=== PATIENT | female | born 1945 | race Caucasian/White ===

== ENCOUNTER 2017-09-28 10:12 | Inpatient (IN) | payer MEDICARE, OTHER ==
[2017-09-28] MEDS ORDERED: Sodium Chloride 0.9% 10 ML Syringe FLUSH PRN (14:25)
[2017-09-28] MEDS ORDERED: Ondansetron 4 MG Tab.DIS PO PRN (14:25)
[2017-09-28] MEDS ORDERED: Promethazine 25 MG in Sodium Chloride 0.9% 100 ML IV PRN (14:30)
[2017-09-28 14:57] LABS: CHLORIDE,CL 108 mEq/L (98-106); SODIUM,NA 144 mEq/L (136-145)
[2017-09-28] MEDS: Enoxaparin 40 MG/0.4 ML Syringe SUBCUT SCH (17:51)
[2017-09-28] MEDS: MEMANTINE 10 MG PO SCH (20:50)
[2017-09-28] MEDS: DONEPEZIL 10 MG PO SCH (20:50)
[2017-09-28] MEDS: GABAPENTIN 300 MG PO SCH (20:51)
[2017-09-28] MEDS: Mirtazapine 15 MG Tab*PT OWN MED PO SCH (20:51)
[2017-09-28] MEDS: ROSUVASTATIN 10 MG PO SCH (20:51)
[2017-09-29] MEDS: METOPROLOL SUCCINATE 50 MG PO SCH (08:30)
[2017-09-29] MEDS: GABAPENTIN 300 MG PO SCH ×3 (08:30→20:25)
[2017-09-29] MEDS: MEMANTINE 10 MG PO SCH ×2 (08:30→20:25)
[2017-09-29] MEDS: Cholecalciferol (Vitamin D3) 1,000 Unit Tab PO SCH (08:32)
--- NOTE | 2017-09-29 09:08 | PCM.PN ---
- General Info Date of Service: 09/29/17 Admission Dx/Problem (Free Text): Dizziness Functional Status: Reports: Pain Controlled, Tolerating Diet, Ambulating - Review of Systems General: Denies: Fever, Weakness, Fatigue HEENT: Reports: No Symptoms Pulmonary: Denies: Shortness of Breath, Cough Cardiovascular: Denies: Chest Pain, Edema, Lightheadedness Gastrointestinal: Denies: Abdominal Pain, Nausea, Vomiting Genitourinary: Reports: No Symptoms Musculoskeletal: Reports: No Symptoms Skin: Reports: No Symptoms Neurological: Reports: Confusion, Dizziness, Pre-Existing Deficit - Patient Data Vitals - Most Recent: Last Vital Signs Temp 97.6 F 09/29/17 07:19 Pulse 87 09/29/17 07:19 Resp 16 09/29/17 07:19 BP 200/80 H 09/29/17 07:19 Pulse Ox 98 09/29/17 07:19 Weight - Most Recent: 147 lb 6.4 oz Lab Results Last 24 Hours: Laboratory Results - last 24 hr 09/28/17 09/28/17 09/28/17 Range/Units 12:00 14:35 14:35 WBC 5.0 (5.0-10.0) 10^3/uL RBC 4.14 (4.00-5.50) 10^6/uL Hgb 12.7 (12.0-16.0) g/dL Hct 37.9 (37.0-47.0) % MCV 91.5 (82.0-94.0) fL MCH 30.7 (27.0-32.0) pg MCHC 33.5 (33.0-38.0) g/dL RDW Coeff of Miguel Angel 13.4 (11.0-15.0) % Plt Count 197 (150-400) 10^3/uL Neut % (Auto) 55.6 (35-85) % Lymph % (Auto) 31.9 (10-55) % [place] % (Auto) 8.9 (0-16) % Eos % (Auto) 3.2 (0-5) % Baso % (Auto) 0.4 (0-3) % Neut # (Auto) 2.75 (1.80-7.00) 10^3/uL Lymph # (Auto) 1.58 (1.00-4.80) 10^3/uL [place] # (Auto) 0.44 (0.00-0.80) 10^3/uL Eos # (Auto) 0.16 (0.00-0.45) 10^3/uL Baso # (Auto) 0.02 10^3/uL Sodium 144 (136-145) mEq/L Potassium 3.9 (3.5-5.0) mEq/L Chloride 108 H (98-106) mEq/L Carbon Dioxide 29 (21-32) mmol/L BUN 13 (7-18) mg/dL Creatinine 0.9 (0.6-1.0) mg/dL Est Cr Clr Drug Dosing 51.59 mL/min Estimated GFR (MDRD) > 60 (>=60) mL/min Glucose 111 H (75-99) mg/dL Calcium 8.8 (8.4-10.1) mg/dL Total Bilirubin 0.3 (0.0-1.0) mg/dL AST 15 (15-37) U/L ALT 18 (12-78) U/L Alkaline Phosphatase 92 (46-116) U/L Troponin I < 0.017 (0.00-0.06) ng/mL C-Reactive Protein < 0.2 L (0.2-0.8) mg/dL Total Protein 6.5 (6.4-8.2) g/dL Albumin 3.5 (3.4-5.0) g/dL Urine Color Yellow (YELLOW) Urine Appearance Clear (CLEAR) Urine pH 7.0 (4.5-8.0) Ur Specific [place] 1.020 (1.003-1.020) Urine Protein Negative (NEGATIVE) mg/dL Urine Glucose (UA) Negative (NEGATIVE) mg/dL Urine Ketones Negative (NEGATIVE) mg/dL Urine Occult Blood Negative (NEGATIVE) Urine Nitrite Negative (NEGATIVE) Urine Bilirubin Negative (NEGATIVE) Urine Urobilinogen 1.0 (0.2-1.0) EU/dL Ur Leukocyte Esterase Negative (NEGATIVE) Urine RBC Not seen (0-5) /HPF Urine WBC Not seen (0-5) /HPF Ur Epithelial Cells Few H (NOT SEEN) /HPF Med Orders - Current: Current Medications Amlodipine Besylate (Norvasc) 5 mg PO BEDTIME [facility] Cholecalciferol (Vitamin D3) 5,000 units PO DAILY [facility] Last Admin: 09/29/17 08:32 Dose: 5,000 units Enoxaparin Sodium (Lovenox) 40 mg SUBCUT Q24H [facility] Last Admin: 09/28/17 17:51 Dose: 40 mg Promethazine HCl 25 mg/ Sodium (Chloride) 101 mls @ 202 mls/hr IV Q6H PRN PRN Reason: Dizziness Memantine (Namenda) 10 mg PO BID [facility] Last Admin: 09/29/17 08:30 Dose: 10 mg Mirtazapine (Remeron) 15 mg PO BEDTIME [facility] Last Admin: 09/28/17 20:51 Dose: 15 mg Ondansetron HCl (Zofran Odt) 4 mg PO Q4H PRN PRN Reason: nausea, able to take PO Donepezil 10 Mg Tab (* Pt Own Med*) 0 each PO BEDTIME [facility] Last Admin: 09/28/17 20:50 Dose: 1 each Gabapentin 300 Mg (Caps*Pt Own Supply*) 0 each PO TID [facility] Last Admin: 09/29/17 08:30 Dose: 300 each Metoprolol Succinate 50 Mg Tabs*Pt Own Med* 0 each PO DAILY [facility] Last Admin: 09/29/17 08:30 Dose: 25 each Rosuvastatin 10 Mg (Tab*Pt Own Med*) 0 each PO BEDTIME [facility] Last Admin: 09/28/17 20:51 Dose: 1 each Sodium Chloride (Saline Flush) 10 ml FLUSH ASDIRECTED PRN PRN Reason: Keep Vein Open - Exam General: Alert, Oriented HEENT: Mucous Membr. Moist/[place] Neck: Supple Lungs: Clear to Auscultation, Normal Respiratory Effort Cardiovascular: Regular Rate, Regular Rhythm GI/Abdominal Exam: Normal Bowel Sounds, Soft, Non-Tender Extremities: Normal Inspection, No Pedal Edema Skin: Warm, Dry Neurological: No New Focal Deficit - Problem List & Annotations (1) Vertigo SNOMED Code(s): 781624380 Code(s): R42 - DIZZINESS AND GIDDINESS Status: Acute Priority: High Current Visit: Yes (2) Uncontrolled hypertension SNOMED Code(s): 00213096 Code(s): I10 - ESSENTIAL (PRIMARY) HYPERTENSION Status: Chronic Priority : High Current Visit: Yes - Problem List Review Problem List Initiated/Reviewed/Updated: Yes - My Orders Last 24 Hours: My Active Orders 09/29/17 20:00 amLODIPine [Norvasc] 5 mg PO BEDTIME - Assessment Assessment:: Vertigo Uncontrolled hypertension - Plan Plan:: Patient continues to complain of dizziness, "feels off". Admits that has more problems when moving head quickly but mostly when getting up to the bathroom or to move around in room. She states she knows to take it slow and does better that way. Denies any chest pain, shortness of breath or nausea. Appetite is good. Blood pressure is high this am, 192/95 and 200/80. Metoprolol had recently been decreased due to dizziness/orthostasis. Did have carotid US, Echo and CT of head yesterday, awaiting reports. Will start Norvasc 5 mg this evening. PT for canalith repositioning. Possible discharge tomorrow.
[2017-09-29] MEDS: Enoxaparin 40 MG/0.4 ML Syringe SUBCUT SCH (17:51)
[2017-09-29] MEDS: amLODIPine 2.5 MG Tab PO SCH (20:25)
[2017-09-29] MEDS: DONEPEZIL 10 MG PO SCH (20:26)
[2017-09-29] MEDS: ROSUVASTATIN 10 MG PO SCH (20:26)
[2017-09-29] MEDS: Mirtazapine 15 MG Tab*PT OWN MED PO SCH (20:26)
[2017-09-30] MEDS: Cholecalciferol (Vitamin D3) 1,000 Unit Tab PO SCH (08:06)
[2017-09-30] MEDS: GABAPENTIN 300 MG PO SCH ×2 (08:06→14:19)
[2017-09-30] MEDS: METOPROLOL SUCCINATE 50 MG PO SCH (08:07)
[2017-09-30] MEDS: MEMANTINE 10 MG PO SCH (08:07)
[2017-09-30] MEDS: Promethazine 12.5 MG in Sodium Chloride 0.9% 50 ML IV SCH (14:14)
--- NOTE | 2017-09-30 15:03 | PCM.PN ---
- General Info Date of Service: 09/30/17 Admission Dx/Problem (Free Text): Dizziness Functional Status: Reports: Pain Controlled, Tolerating Diet, Ambulating - Review of Systems General: Denies: Fever, Weakness, Fatigue HEENT: Reports: No Symptoms Pulmonary: Denies: Shortness of Breath, Cough Cardiovascular: Denies: Chest Pain, Edema, Lightheadedness Gastrointestinal: Denies: Abdominal Pain, Decreased Appetite, Nausea, Vomiting Genitourinary: Reports: No Symptoms Musculoskeletal: Reports: No Symptoms Skin: Reports: No Symptoms Neurological: Reports: Dizziness. Denies: Syncope, Weakness - Patient Data Vitals - Most Recent: Last Vital Signs Temp 98.1 F 09/30/17 08:00 Pulse 70 09/30/17 08:00 Resp 20 09/30/17 08:00 BP 151/59 H 09/30/17 08:00 Pulse Ox 96 09/30/17 08:00 Weight - Most Recent: 147 lb 6.4 oz Med Orders - Current: Current Medications Amlodipine Besylate (Norvasc) 5 mg PO BEDTIME [facility] Last Admin: 09/29/17 20:25 Dose: 5 mg Cholecalciferol (Vitamin D3) 5,000 units PO DAILY [facility] Last Admin: 09/30/17 08:06 Dose: 5,000 units Enoxaparin Sodium (Lovenox) 40 mg SUBCUT Q24H [facility] Last Admin: 09/29/17 17:51 Dose: 40 mg Promethazine HCl 25 mg/ Sodium (Chloride) 101 mls @ 202 mls/hr IV Q6H PRN PRN Reason: Dizziness Last Admin: 09/30/17 11:18 Dose: 202 mls/hr Promethazine HCl 12.5 mg/ (Sodium Chloride) 50.5 mls @ 100 mls/hr IV Q12H [facility] Last Admin: 09/30/17 14:14 Dose: Not Given Memantine (Namenda) 10 mg PO BID [facility] Last Admin: 09/30/17 08:07 Dose: 10 mg Mirtazapine (Remeron) 15 mg PO BEDTIME [facility] Last Admin: 09/29/17 20:26 Dose: 15 mg Ondansetron HCl (Zofran Odt) 4 mg PO Q4H PRN PRN Reason: nausea, able to take PO Donepezil 10 Mg Tab (* Pt Own Med*) 0 each PO BEDTIME [facility] Last Admin: 09/29/17 20:26 Dose: 1 each Gabapentin 300 Mg (Caps*Pt Own Supply*) 0 each PO TID [facility] Last Admin: 09/30/17 14:19 Dose: 1 each Metoprolol Succinate 50 Mg Tabs*Pt Own Med* 0 each PO DAILY [facility] Last Admin: 09/30/17 08:07 Dose: 1 each Rosuvastatin 10 Mg (Tab*Pt Own Med*) 0 each PO BEDTIME [facility] Last Admin: 09/29/17 20:26 Dose: 1 each Sodium Chloride (Saline Flush) 10 ml FLUSH ASDIRECTED PRN PRN Reason: Keep Vein Open - Exam General: Alert, Oriented HEENT: Mucous Membr. Moist/[place] Neck: Supple Lungs: Clear to Auscultation, Normal Respiratory Effort Cardiovascular: Regular Rate, Regular Rhythm GI/Abdominal Exam: Normal Bowel Sounds, Soft, Non-Tender Extremities: Normal Inspection, No Pedal Edema Skin: Warm, Dry Neurological: No New Focal Deficit - Problem List & Annotations (1) Vertigo SNOMED Code(s): 357034216 Code(s): R42 - DIZZINESS AND GIDDINESS Status: Acute Priority: High Current Visit: Yes (2) Uncontrolled hypertension SNOMED Code(s): 50060363 Code(s): I10 - ESSENTIAL (PRIMARY) HYPERTENSION Status: Chronic Priority : High Current Visit: Yes - Problem List Review Problem List Initiated/Reviewed/Updated: Yes - My Orders Last 24 Hours: My Active Orders 09/29/17 20:00 amLODIPine [Norvasc] 5 mg PO BEDTIME 09/30/17 08:27 Ready for Discharge [RC] PER UNIT ROUTINE 09/30/17 08:31 EKG 12 Lead [EK] Stat 09/30/17 12:12 Admission Status [Patient Status] [ADT] Routine 09/30/17 12:15 Promethazine [Phenergan] 12.5 mg Sodium Chloride 0.9% [Normal Saline] 50 ml IV Q12H - Assessment Assessment:: Vertigo Uncontrolled hypertension - Plan Plan:: Patient continues to complain of dizziness, "feels off". Admits that has more problems when moving head quickly but mostly when getting up to the bathroom or to move around in room. She states she knows to take it slow and does better that way. Denies any chest pain, shortness of breath or nausea. Appetite is good. Blood pressure is high this am, 192/95 and 200/80. Metoprolol had recently been decreased due to dizziness/orthostasis. Did have carotid US, Echo and CT of head yesterday, awaiting reports. Will start Norvasc 5 mg this evening. PT for canalith repositioning. Possible discharge tomorrow. 09-30-2017 Patient initially when seen on exam this am states she was feeling good, appetite had returned. Only mild dizziness at times when getting up to the bathroom. BLood pressure much improved from yesterday with addition of Norvasc. Had canalith repositioning yesterday which did seem had helped her symptoms. After breakfast, patient again complained of severe dizziness, did not feel it was controlled at all any more than prior to admit. Dr. Dutton consulted with patient and . Opted to cancel discharge due to change in status, transferred to acute. Start Phenergan 12.5 mg IV every 12 hours for more control of her dizziness. Continue with slow cautious movements. will monitor.
[2017-09-30] MEDS: Enoxaparin 40 MG/0.4 ML Syringe SUBCUT SCH (17:59)
[2017-09-30] MEDS: Memantine 10 MG Tab PO SCH (19:56)
[2017-09-30] MEDS: Donepezil 5 MG Tab PO SCH (19:56)
[2017-09-30] MEDS: Simvastatin 40 MG Tab PO SCH (19:57)
[2017-09-30] MEDS: Mirtazapine 15 MG Tab PO SCH (19:57)
[2017-09-30] MEDS: Gabapentin 300 MG Cap PO SCH (19:57)
[2017-09-30] MEDS: amLODIPine 2.5 MG Tab PO SCH (19:57)
[2017-10-01] MEDS: Promethazine 12.5 MG in Sodium Chloride 0.9% 50 ML IV SCH ×2 (00:17→11:25)
[2017-10-01] MEDS: Cholecalciferol (Vitamin D3) 1,000 Unit Tab PO SCH (07:31)
[2017-10-01] MEDS: Gabapentin 300 MG Cap PO SCH ×3 (07:31→19:39)
[2017-10-01] MEDS: Memantine 10 MG Tab PO SCH ×2 (07:31→19:38)
[2017-10-01] MEDS: Metoprolol Succinate 25 MG Tab.ER PO SCH (07:32)
--- NOTE | 2017-10-01 08:27 | PCM.PN ---
- General Info Date of Service: 10/01/17 Functional Status: Reports: Pain Controlled, Tolerating Diet - Review of Systems General: Reports: No Symptoms HEENT: Reports: No Symptoms Pulmonary: Reports: No Symptoms Cardiovascular: Reports: No Symptoms Gastrointestinal: Reports: No Symptoms Genitourinary: Reports: No Symptoms Musculoskeletal: Reports: No Symptoms Skin: Reports: No Symptoms Neurological: Reports: Dizziness. Denies: Confusion, Headache, Numbness, Paresthesia, Pre-Existing Deficit, Seizure, Syncope, Tingling, Tremors, Trouble Speaking, Weakness, Change in Speech Psychiatric: Reports: No Symptoms - Patient Data Vitals - Most Recent: Last Vital Signs Temp 98.1 F 10/01/17 08:00 Pulse 80 10/01/17 08:00 Resp 18 10/01/17 08:00 BP 149/79 H 10/01/17 08:00 Pulse Ox 97 10/01/17 08:00 Weight - Most Recent: 147 lb 6.4 oz Med Orders - Current: Current Medications Amlodipine Besylate (Norvasc) 5 mg PO BEDTIME [facility] Last Admin: 09/30/17 19:57 Dose: 5 mg Cholecalciferol (Vitamin D3) 5,000 units PO DAILY [facility] Last Admin: 10/01/17 07:31 Dose: 5,000 units Donepezil HCl (Aricept) 10 mg PO BEDTIME [facility] Last Admin: 09/30/17 19:56 Dose: 10 mg Enoxaparin Sodium (Lovenox) 40 mg SUBCUT Q24H [facility] Last Admin: 09/30/17 17:59 Dose: 40 mg Gabapentin (Neurontin) 300 mg PO TID [facility] Last Admin: 10/01/17 07:31 Dose: 300 mg Promethazine HCl 25 mg/ Sodium (Chloride) 101 mls @ 202 mls/hr IV Q6H PRN PRN Reason: Dizziness Last Admin: 09/30/17 11:18 Dose: 202 mls/hr Promethazine HCl 12.5 mg/ (Sodium Chloride) 50.5 mls @ 100 mls/hr IV Q12H [facility] Last Admin: 10/01/17 00:17 Dose: 100 mls/hr Memantine (Namenda) 10 mg PO BID [facility] Last Admin: 10/01/17 07:31 Dose: 10 mg Metoprolol Succinate (Toprol Xl) 50 mg PO DAILY [facility] Last Admin: 10/01/17 07:32 Dose: 50 mg Mirtazapine (Remeron) 15 mg PO BEDTIME [facility] Last Admin: 09/30/17 19:57 Dose: 15 mg Ondansetron HCl (Zofran Odt) 4 mg PO Q4H PRN PRN Reason: nausea, able to take PO Simvastatin (Zocor) 40 mg PO BEDTIME [facility] Last Admin: 09/30/17 19:57 Dose: 40 mg Sodium Chloride (Saline Flush) 10 ml FLUSH ASDIRECTED PRN PRN Reason: Keep Vein Open Discontinued Medications Memantine (Namenda) 10 mg PO BID [facility] Last Admin: 09/30/17 08:07 Dose: 10 mg Mirtazapine (Remeron) 15 mg PO BEDTIME [facility] Last Admin: 09/29/17 20:26 Dose: 15 mg Donepezil 10 Mg Tab (* Pt Own Med*) 0 each PO BEDTIME [facility] Last Admin: 09/29/17 20:26 Dose: 1 each Gabapentin 300 Mg (Caps*Pt Own Supply*) 0 each PO TID [facility] Last Admin: 09/30/17 14:19 Dose: 1 each Metoprolol Succinate 50 Mg Tabs*Pt Own Med* 0 each PO DAILY [facility] Last Admin: 09/30/17 08:07 Dose: 1 each Rosuvastatin 10 Mg (Tab*Pt Own Med*) 0 each PO BEDTIME [facility] Last Admin: 09/29/17 20:26 Dose: 1 each - Exam General: Alert, Oriented (to self and place. Not time. She asked me what day it is. This is her baseline norm, with hx of dementia. ), Cooperative, No Acute Distress HEENT: Pupils Equal, Pupils Reactive, EOMI, Mucous Membr. Moist/[place], Other ( mild congestion) Neck: Supple, Trachea Midline, No JVD, No Thyromegaly Lungs: Clear to Auscultation, Normal Respiratory Effort Cardiovascular: Regular Rate, Regular Rhythm, No Murmurs GI/Abdominal Exam: Normal Bowel Sounds, Soft, Non-Tender, No Organomegaly, No Distention, No Abnormal Bruit, No Mass, Pelvis Stable (Female) Exam: Deferred Back Exam: Normal Inspection, Full Range of Motion. No: CVA Tenderness (L), CVA Tenderness (R) Extremities: Normal Inspection, Normal Range of Motion, Non-Tender, No Pedal Edema, Normal Capillary Refill Peripheral Pulses: 2+: Radial (L), Radial (R), Posterior Tibial (L), Posterior Tibial (R) Skin: Warm, Dry, Intact Neurological: No New Focal Deficit, Normal Speech, Strength Equal Bilateral, Sensation Intact, Cranial Nerves Intact, Other (dizziness with ambulation. ) Psy/Mental Status: Alert, Normal Affect, Normal Mood - Problem List Review Problem List Initiated/Reviewed/Updated: Yes - My Orders Last 24 Hours: My Active Orders 10/01/17 07:58 BMP [BASIC METABOLIC PANEL,BMP] [CHEM] DAILY CBC WITH AUTO DIFF [HEME] Routine 10/02/17 07:58 BMP [BASIC METABOLIC PANEL,BMP] [CHEM] DAILY - Assessment Assessment:: Vertigo Uncontrolled hypertension 10/01/17 0800 Patient was admitted on 09/29/17 for dizziness. She was transitioned to acute status from obs yesterday. Patient has history of dementia. Patient does report that she has had dizziness for the last few days. Patient reports that her periods of dizziness has improved some. She reports that when she is in bed sitting still that her dizziness is not present. The patient reports that the phenergan medication may be working for her dizziness. She reports that she is not able to ambulate without assistance due to dizziness. Patient denies sands, n, v, d, f, neck pain, neck stiffness, injuries, falls, cp, soa, abd pain, urinary/ bowel changes. She does report some mild congestion. Will continue to monitor her, draw labs, evaluate tomorrow. - Plan Plan:: Patient continues to complain of dizziness, "feels off". Admits that has more problems when moving head quickly but mostly when getting up to the bathroom or to move around in room. She states she knows to take it slow and does better that way. Denies any chest pain, shortness of breath or nausea. Appetite is good. Blood pressure is high this am, 192/95 and 200/80. Metoprolol had recently been decreased due to dizziness/orthostasis. Did have carotid US, Echo and CT of head yesterday, awaiting reports. Will start Norvasc 5 mg this evening. PT for canalith repositioning. Possible discharge tomorrow. 09-30-2017 Patient initially when seen on exam this am states she was feeling good, appetite had returned. Only mild dizziness at times when getting up to the bathroom. BLood pressure much improved from yesterday with addition of Norvasc. Had canalith repositioning yesterday which did seem had helped her symptoms. After breakfast, patient again complained of severe dizziness, did not feel it was controlled at all any more than prior to admit. Dr. Dutton consulted with patient and . Opted to cancel discharge due to change in status, transferred to acute. Start Phenergan 12.5 mg IV every 12 hours for more control of her dizziness. Continue with slow cautious movements. will monitor.
[2017-10-01] MEDS: Enoxaparin 40 MG/0.4 ML Syringe SUBCUT SCH (17:49)
[2017-10-01] MEDS: Donepezil 5 MG Tab PO SCH (19:38)
[2017-10-01] MEDS: Mirtazapine 15 MG Tab PO SCH (19:39)
[2017-10-01] MEDS: Simvastatin 40 MG Tab PO SCH (19:39)
[2017-10-01] MEDS: amLODIPine 2.5 MG Tab PO SCH (20:05)
[2017-10-02] MEDS: Promethazine 12.5 MG in Sodium Chloride 0.9% 100 ML IV SCH ×2 (00:21→11:43)
[2017-10-02] MEDS ORDERED: Promethazine 25 MG/ML SDV ONE ×2 (00:24→22:47)
--- NOTE | 2017-10-02 05:56 | PCM.PRNOTE ---
- Free Text/Narrative Note: Patient is a 72 year old that was admitted for dizziness with positional changes or movement. Patient this morning reports that she has no dizziness. She reports the dizziness is with movement, but she has not been up yet this morning. She is alert and oriented this morning. Later today we will have the staff walk the patient and see how she does. There are labs ordered today. Labs done yesterday are unremarkable. Will continue with admit and have her PCP see the patient Tuesday. I believe this patient will be discharged home on Tuesday.
[2017-10-02 07:42] LABS: CHLORIDE,CL 108 mEq/L (98-106); SODIUM,NA 143 mEq/L (136-145)
[2017-10-02] MEDS: Metoprolol Succinate 25 MG Tab.ER PO SCH (08:34)
[2017-10-02] MEDS: Gabapentin 300 MG Cap PO SCH ×3 (08:34→21:13)
[2017-10-02] MEDS: Memantine 10 MG Tab PO SCH ×2 (08:34→21:12)
[2017-10-02] MEDS: Cholecalciferol (Vitamin D3) 1,000 Unit Tab PO SCH (08:35)
[2017-10-02] MEDS: Enoxaparin 40 MG/0.4 ML Syringe SUBCUT SCH (17:18)
[2017-10-02] MEDS: Simvastatin 40 MG Tab PO SCH (21:12)
[2017-10-02] MEDS: Mirtazapine 15 MG Tab PO SCH (21:13)
[2017-10-02] MEDS: Donepezil 5 MG Tab PO SCH (21:13)
[2017-10-02] MEDS: amLODIPine 2.5 MG Tab PO SCH (21:13)
[2017-10-03] MEDS: Promethazine 12.5 MG in Sodium Chloride 0.9% 100 ML IV SCH (00:16)
[2017-10-03] MEDS: Gabapentin 300 MG Cap PO SCH (07:59)
[2017-10-03] MEDS: Memantine 10 MG Tab PO SCH (07:59)
[2017-10-03] MEDS: Cholecalciferol (Vitamin D3) 1,000 Unit Tab PO SCH (07:59)
[2017-10-03 08:00] VITALS: BP 150/68
[2017-10-03] MEDS: Metoprolol Succinate 25 MG Tab.ER PO SCH (08:00)
--- NOTE | 2017-10-04 21:37 | PCM.DCSUM1 ---
Discharge Summary - Hospital Course Free Text/Narrative:: Patient admitted from clinic with complaints of dizziness. Had seen Dr. Dutton a week prior and had her metoprolol decreased as it seemed more orthostatic in nature. On admit, dizziness more with quick head movements. Admitted for further work up and medication changes. Was hypertensive on admit. Carotid ultrasound, echocardiogram and labs ordered to rule out a central cause of dizziness. - Discharge Data Discharge Date: 10/03/17 Discharge Disposition: Home, Self-Care 01 Condition: Good - Discharge Diagnosis/Problem(s) (1) Vertigo SNOMED Code(s): 273920302 ICD Code: R42 - DIZZINESS AND GIDDINESS Status: Acute Priority: High (2) Uncontrolled hypertension SNOMED Code(s): 81176177 ICD Code: I10 - ESSENTIAL (PRIMARY) HYPERTENSION Status: Chronic Priority : High - Patient Summary/Data Complications: none Consults: Consultations 09/28/17 14:25 PT Evaluation and Treatment [CONS] Routine Hospital Course: Patient had slow improvement of dizziness. Was initially planned to be discharged home on Tuesday but dizziness again worsened. She was started on Phenergan at that time. Canalith repositioning was done. Blood pressure was high, Amlodipine was started with good response. Patient labs remain stable, cardiac enzymes negative. Carotid ultrasound stable without concern. Echo stable. Patient does continue to have mild dizziness at times but was stable with ambulation and appetite good over the weekend. No nausea or vomiting. - Patient Instructions Diet: Usual Diet as Tolerated Activity: As Tolerated Other/Special Instructions: See Physical Therapy in [place] for vestibular rehab - Discharge Plan Prescriptions/Med Rec: amLODIPine [Norvasc] 5 mg PO BEDTIME #30 tablet Home Medications: Home Meds Donepezil [Aricept] 10 mg PO BEDTIME 02/11/15 [History] Memantine [Namenda] 10 mg PO BID 02/11/15 [History] Mirtazapine [Remeron] 15 mg PO BEDTIME 02/11/15 [History] Pantoprazole [ProTONIX] 40 mg PO ONETIME PRN 02/11/15 [History] Cholecalciferol (Vitamin D3) [Vitamin D3] 5,000 unit PO DAILY 09/28/17 [History] Cyanocobalamin (Vitamin B-12) [Cyanocobalamin Injection] 1 ml IM ASDIRECTED 02/08 [History] Gabapentin [Neurontin] 300 mg PO TID 09/28/17 [History] Metoprolol Succinate [Toprol XL 50mg] 25 mg PO DAILY 09/28/17 [History] Rosuvastatin Calcium 10 mg PO BEDTIME 09/28/17 [History] amLODIPine [Norvasc] 5 mg PO BEDTIME #30 tablet 09/30/17 [Rx] Referrals: Dhruv Dutton MD [Primary Care Provider] - (Dr. Dutton in one week) - Discharge Summary/Plan Comment Discharge Summary/Plan Comment: Discharge home Continue Amlodipine Vestibular therapy by PT - General Info Date of Service: 10/03/17 Admission Dx/Problem (Free Text: Dizziness Functional Status: Reports: Pain Controlled, Tolerating Diet, Ambulating - Review of Systems General: Denies: Weakness, Fatigue HEENT: Denies: Ear Pain, Eye Pain, Sinus Congestion, Sore Throat, Rhinitis Pulmonary: Denies: Shortness of Breath, Cough Cardiovascular: Denies: Chest Pain, Edema, Lightheadedness Gastrointestinal: Denies: Abdominal Pain, Nausea, Vomiting Genitourinary: Reports: No Symptoms Musculoskeletal: Reports: No Symptoms Skin: Reports: No Symptoms Neurological: Reports: Dizziness - Patient Data Vitals - Most Recent: Last Vital Signs Temp 97.3 F 10/03/17 08:00 Pulse 62 10/03/17 08:00 Resp 16 10/03/17 08:00 BP 150/68 H 10/03/17 08:00 Pulse Ox 96 10/03/17 08:00 Weight - Most Recent: 147 lb 6.4 oz Med Orders - Current: Current Medications Discontinued Medications Amlodipine Besylate (Norvasc) 5 mg PO BEDTIME [facility] Last Admin: 10/02/17 21:13 Dose: 5 mg Cholecalciferol (Vitamin D3) 5,000 units PO DAILY [facility] Last Admin: 10/03/17 07:59 Dose: 5,000 units Donepezil HCl (Aricept) 10 mg PO BEDTIME [facility] Last Admin: 10/02/17 21:13 Dose: 10 mg Enoxaparin Sodium (Lovenox) 40 mg SUBCUT Q24H [facility] Last Admin: 10/02/17 17:18 Dose: 40 mg Gabapentin (Neurontin) 300 mg PO TID [facility] Last Admin: 10/03/17 07:59 Dose: 300 mg Promethazine HCl 25 mg/ Sodium (Chloride) 101 mls @ 202 mls/hr IV Q6H PRN PRN Reason: Dizziness Last Admin: 09/30/17 11:18 Dose: 202 mls/hr Promethazine HCl 12.5 mg/ (Sodium Chloride) 50.5 mls @ 100 mls/hr IV Q12H [facility] Last Admin: 10/01/17 11:25 Dose: 100 mls/hr Promethazine HCl 12.5 mg/ (Sodium Chloride) 100.5 mls @ 199.01 mls/hr IV Q12H [facility] Last Admin: 10/03/17 00:16 Dose: 199.01 mls/hr Memantine (Namenda) 10 mg PO BID [facility] Last Admin: 09/30/17 08:07 Dose: 10 mg Memantine (Namenda) 10 mg PO BID [facility] Last Admin: 10/03/17 07:59 Dose: 10 mg Metoprolol Succinate (Toprol Xl) 50 mg PO DAILY [facility] Last Admin: 10/03/17 08:00 Dose: 50 mg Mirtazapine (Remeron) 15 mg PO BEDTIME [facility] Last Admin: 09/29/17 20:26 Dose: 15 mg Mirtazapine (Remeron) 15 mg PO BEDTIME [facility] Last Admin: 10/02/17 21:13 Dose: 15 mg Ondansetron HCl (Zofran Odt) 4 mg PO Q4H PRN PRN Reason: nausea, able to take PO Donepezil 10 Mg Tab (* Pt Own Med*) 0 each PO BEDTIME [facility] Last Admin: 09/29/17 20:26 Dose: 1 each Gabapentin 300 Mg (Caps*Pt Own Supply*) 0 each PO TID [facility] Last Admin: 09/30/17 14:19 Dose: 1 each Metoprolol Succinate 50 Mg Tabs*Pt Own Med* 0 each PO DAILY [facility] Last Admin: 09/30/17 08:07 Dose: 1 each Rosuvastatin 10 Mg (Tab*Pt Own Med*) 0 each PO BEDTIME [facility] Last Admin: 09/29/17 20:26 Dose: 1 each Promethazine HCl (Phenergan) Confirm Administered Dose 25 mg .ROUTE .STK-MED ONE Stop: 10/02/17 00:25 Last Admin: 10/02/17 00:17 Dose: Not Given Promethazine HCl (Phenergan) Confirm Administered Dose 25 mg .ROUTE .STK-MED ONE Stop: 10/02/17 22:48 Last Admin: 10/02/17 22:54 Dose: Not Given Simvastatin (Zocor) 40 mg PO BEDTIME [facility] Last Admin: 10/02/17 21:12 Dose: 40 mg Sodium Chloride (Saline Flush) 10 ml FLUSH ASDIRECTED PRN PRN Reason: Keep Vein Open - Exam General: Reports: Alert, Oriented HEENT: Reports: Mucous Membr. Moist/[place] Neck: Reports: Supple Lungs: Reports: Clear to Auscultation, Normal Respiratory Effort Cardiovascular: Reports: Regular Rate, Regular Rhythm GI/Abdominal Exam: Normal Bowel Sounds, Soft, Non-Tender Extremities: Normal Inspection, No Pedal Edema Skin: Reports: Warm, Dry Neurological: Reports: No New Focal Deficit *Q Meaningful Use (DIS) - VTE *Q VTE Criteria *Q: - Stroke *Q Stroke Criteria *Q: - AMI *Q AMI Criteria *Q:
== END 2017-10-03 10:30 | disposition home or self-care (01) | DRG 149 ==
LOC: CC.MS 10:12 → UNDOADMOB 10:12 → CC.MS 14:25 → OBSVTOIN 09-30 12:12
PROVIDERS: ADMIT Family Medicine; ATTEND Family Medicine
DX: R42 Dizziness and giddiness (principal); Z86.73 Personal history of transient ischemic attack (TIA), and cerebral infarction without residual deficits; I25.10 Atherosclerotic heart disease of native coronary artery without angina pectoris; I10 Essential (primary) hypertension; I25.2 Old myocardial infarction; E53.8 Deficiency of other specified B group vitamins; F03.90 Unspecified dementia, unspecified severity, without behavioral disturbance, psychotic disturbance, mood disturbance, and anxiety; K21.9 Gastro-esophageal reflux disease without esophagitis; E78.5 Hyperlipidemia, unspecified; M17.10 Unilateral primary osteoarthritis, unspecified knee; M81.8 Other osteoporosis without current pathological fracture; G62.9 Polyneuropathy, unspecified; E55.9 Vitamin D deficiency, unspecified; Z88.0 Allergy status to penicillin; Z88.2 Allergy status to sulfonamides; Z79.899 Other long term (current) drug therapy
CPT/HCPCS: 36415; 70450; 71046; 80048; 80053; 81001; 84484; 85025; 86140; 93005; 93880; 97112-GP; 97162-GP; A9270-GY; J1650; J2550; J7050

== ENCOUNTER 2018-12-18 07:30 | Observation (INO) | payer MEDICARE, OTHER ==
--- NOTE | 2018-12-18 08:30 | EDM.PDOC ---
ED HPI GENERAL MEDICAL PROBLEM - General Chief Complaint: General Stated Complaint: dizziness, urinary frequency Time Seen by Provider: 12/18/18 07:42 Source of Information: Reports: Patient History Limitations: Reports: No Limitations - History of Present Illness INITIAL COMMENTS - FREE TEXT/NARRATIVE: This patient is a 73 year old female that presents to the ER via EMS. 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 Patient family reports the patient has a history of Dizziness for the last 6 months and has been on Compazine 5mg three times a day. They report she is seeing a doctor in [place] that is managing this complaint and medication. They report that on Tuesday her Compazine was increased to 10mg three times a day. Family reports that shortly after the third dose increase on Tuesday that she began having her symptoms. They report the patient has had urinary frequency, urinary urge, generally weak, fatigue, decreased appetite. They report 2 days ago she started having tremors of her hands. They report that 2 days ago, they made the decision to go back to her regular dose of medication. They report the patient has been getting generally weaker and now is difficult to get out of bed and ambulate. She barely swings her legs over the bed and requires a lot of assistance per family. The reports he does not think in her current condition that he can take care of her at home. Onset Date: 12/15/18 Severity: Mild Improves with: Reports: Rest Worsens with: Reports: Movement Associated Symptoms: Reports: Loss of Appetite, Malaise, Weakness (generalized) . Denies: Confusion, Chest Pain, Cough, cough w sputum, Diaphoresis, Fever/ Chills, Headaches, Nausea/Vomiting, Rash, Seizure, Shortness of Breath, Syncope - Related Data Allergies Allergy/AdvReac Type Severity Reaction Status Date / Time penicillin Allergy Rash Verified 12/18/18 07:45 Sulfa (Sulfonamide Allergy Rash Verified 12/18/18 07:45 Antibiotics) Home Meds: Home Meds Donepezil [Aricept] 10 mg PO BEDTIME 02/11/15 [History] Mirtazapine [Remeron] 15 mg PO BEDTIME 02/11/15 [History] Pantoprazole [ProTONIX] 40 mg PO DAILY PRN 02/11/15 [History] Rosuvastatin Calcium 10 mg PO BEDTIME 09/28/17 [History] Folic Acid 1 tab PO DAILY 12/18/18 [History] Furosemide 1 tab PO DAILY 12/18/18 [History] Potassium Chloride 1 tab PO DAILY 12/18/18 [History] Prochlorperazine [Compazine] 5 mg PO Q8H PRN 12/18/18 [History] amLODIPine [Norvasc] 5 mg PO DAILY 12/18/18 [History] risperiDONE 1 tab PO BID 12/18/18 [History] Past Medical History - Past Health History Medical/Surgical History: Denies Medical/Surgical History Cardiovascular History: Reports: Hypertension, [place] Gastrointestinal History: Reports: Other (See Below) Other Gastrointestinal History: Diverticulitis 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 (See Below) Other HORSE RANCHER History: Hysterectomy Other Musculoskeletal History: Neuropathy Neurological History: Reports: Alzheimers Disease, Vertigo - Past Surgical History GI Surgical History: Reports: Appendectomy, Cholecystectomy, Colonoscopy Female Surgical History: Reports: Hysterectomy Musculoskeletal Surgical History: Reports: Knee Replacement Social & Family History - Family History Family Medical History: Noncontributory Cardiac: Reports: Other (See Below) Other Cardiac Family History: Heart problems Oncologic: Reports: Breast - Tobacco Use Smoking Status *Q: Never Smoker - Caffeine Use Caffeine Use: Reports: Coffee - Recreational Drug Use Recreational Drug Use: No ED ROS GENERAL - Review of Systems Review Of Systems: See Below Constitutional: Reports: Malaise, Weakness (generally), Fatigue, Decreased Appetite HEENT: Reports: No Symptoms Respiratory: Reports: No Symptoms. Denies: Shortness of Breath Cardiovascular: Reports: No Symptoms Endocrine: Reports: No Symptoms GI/Abdominal: Denies: Abdominal Pain, Nausea, Vomiting : Reports: Frequency, Urgency Musculoskeletal: Reports: No Symptoms Skin: Reports: No Symptoms Neurological: Reports: Dizziness, Tremors, Other (more drowsy per family. ). Denies: Confusion, Headache Psychiatric: Reports: No Symptoms Hematologic/Lymphatic: Reports: No Symptoms Immunologic: Reports: No Symptoms ED EXAM, GENERAL - Physical Exam Exam: See Below Exam Limited By: No Limitations General Appearance: Alert, WD/WN, No Apparent Distress Eye Exam: Bilateral Eye: EOMI, Normal Inspection, PERRL Ears: Normal External Exam, Normal Canal, Hearing Grossly Normal, Normal TMs Ear Exam: Bilateral Ear: Auricle Normal, Canal Normal, TM normal Nose: Normal Inspection, Normal Mucosa, No Blood Throat/Mouth: Normal Inspection, Normal Lips, Normal Teeth, Normal Gums, Normal Oropharynx, Normal Voice, No Airway Compromise Head: Atraumatic, Normocephalic Neck: Normal Inspection, Supple, Non-Tender, Full Range of Motion Respiratory/Chest: No Respiratory Distress, Lungs Clear, Normal Breath Sounds, No Accessory Muscle Use, Chest Non-Tender Cardiovascular: Normal Peripheral Pulses, Regular Rate, Rhythm, No Edema, No Gallop, No JVD, No Murmur, No Rub Peripheral Pulses: 2+: Radial (L), Radial (R), Posterior Tibial (L), Posterior Tibial (R), Dorsalis Pedis (L), Dorsalis Pedis (R) GI/Abdominal: Normal Bowel Sounds, Soft, Non-Tender, No Organomegaly, No Distention, No Abnormal Bruit, No Mass Back Exam: Normal Inspection, Full Range of Motion, CVA Tenderness (R) (mild). No: CVA Tenderness (L) Extremities: Normal Inspection, Normal Range of Motion, Non-Tender, No Pedal Edema, Normal Capillary Refill Neurological: Alert, Oriented (x3), CN II-XII Intact (patient is weak, but not unilaterally. Generally weak. ), Normal Cognition, No Motor/Sensory Deficits, Other (Patient not been able to walk at home today.Tremors of the hands, new last 2 days. ) Psychiatric: Normal Affect, Normal Mood Skin Exam: Warm, Dry, Intact, Normal Color, No Rash Lymphatic: No Adenopathy EKG INTERPRETATION EKG Date: 12/18/18 Time: 08:41 Rhythm: NSR Rate (Beats/Min): 75 ST-T: Normal Course - Vital Signs Last Recorded V/S: Last Vital Signs Temp 97 F 12/18/18 07:43 Pulse 89 12/18/18 07:43 Resp 18 12/18/18 07:43 BP 139/82 12/18/18 07:43 Pulse Ox 98 12/18/18 07:43 - Orders/Labs/Meds Orders: Active Orders 24 hr Category Date Time Status Chest 1V Frontal [CR] Stat Exams 12/18/18 08:12 Taken Head wo Cont [CT] Stat Exams 12/18/18 08:12 Taken CULTURE BLOOD [BC] Stat Lab 12/18/18 08:31 Received CULTURE BLOOD [BC] Stat Lab 12/18/18 08:54 Received CULTURE URINE [RM] Stat Lab 12/18/18 09:05 Received Blood Culture x2 Reflex Set [OM.PC] Stat Oth 12/18/18 08:13 Ordered Labs: Laboratory Tests 12/18/18 12/18/18 12/18/18 Range/Units 08:10 08:31 08:31 WBC 6.8 (5.0-10.0) 10^3/uL RBC 4.07 (4.00-5.50) 10^6/uL Hgb 13.0 (12.0-16.0) g/dL Hct 37.9 (37.0-47.0) % MCV 93.1 (82.0-94.0) fL MCH 31.9 (27.0-32.0) pg MCHC 34.3 (33.0-38.0) g/dL RDW Coeff of Miguel Angel 12.9 (11.0-15.0) % Plt Count 232 (150-400) 10^3/uL Neut % (Auto) 77.9 (35-85) % Lymph % (Auto) 13.4 (10-55) % [place] % (Auto) 8.1 (0-16) % Eos % (Auto) 0.3 (0-5) % Baso % (Auto) 0.3 (0-3) % Neut # (Auto) 5.29 (1.80-7.00) 10^3/uL Lymph # (Auto) 0.91 L (1.00-4.80) 10^3/uL [place] # (Auto) 0.55 (0.00-0.80) 10^3/uL Eos # (Auto) 0.02 (0.00-0.45) 10^3/uL Baso # (Auto) 0.02 10^3/uL Sodium 142 (136-145) mEq/L Potassium 4.0 (3.5-5.0) mEq/L Chloride 105 (98-106) mEq/L Carbon Dioxide 27 (21-32) mmol/L BUN 23 H (7-18) mg/dL Creatinine 1.0 (0.6-1.0) mg/dL Est Cr Clr Drug Dosing 45.76 mL/min Estimated GFR (MDRD) 55 L (>=60) mL/min Glucose 108 H (75-99) mg/dL Lactic Acid (0.4-2.0) mmol/L Calcium 9.4 (8.4-10.1) mg/dL Total Bilirubin 0.7 (0.0-1.0) mg/dL AST 16 (15-37) U/L ALT 14 (12-78) U/L Alkaline Phosphatase 96 (46-116) U/L Troponin I < 0.017 (0.00-0.06) ng/mL Total Protein 7.2 (6.4-8.2) g/dL Albumin 3.9 (3.4-5.0) g/dL Urine Color Yellow (YELLOW) Urine Appearance Slightly cloudy (CLEAR) Urine pH 7.0 (4.5-8.0) Ur Specific [place] 1.015 (1.003-1.020) Urine Protein 100 H (NEGATIVE) mg/dL Urine Glucose (UA) Negative (NEGATIVE) mg/dL Urine Ketones Negative (NEGATIVE) mg/dL Urine Occult Blood Negative (NEGATIVE) Urine Nitrite Negative (NEGATIVE) Urine Bilirubin Negative (NEGATIVE) Urine Urobilinogen 1.0 (0.2-1.0) EU/dL Ur Leukocyte Esterase Small H (NEGATIVE) 12/18/18 Range/Units 08:31 WBC (5.0-10.0) 10^3/uL RBC (4.00-5.50) 10^6/uL Hgb (12.0-16.0) g/dL Hct (37.0-47.0) % MCV (82.0-94.0) fL MCH (27.0-32.0) pg MCHC (33.0-38.0) g/dL RDW Coeff of [place] (11.0-15.0) % Plt Count (150-400) 10^3/uL Neut % (Auto) (35-85) % Lymph % (Auto) (10-55) % [place] % (Auto) (0-16) % Eos % (Auto) (0-5) % Baso % (Auto) (0-3) % Neut # (Auto) (1.80-7.00) 10^3/uL Lymph # (Auto) (1.00-4.80) 10^3/uL [place] # (Auto) (0.00-0.80) 10^3/uL Eos # (Auto) (0.00-0.45) 10^3/uL Baso # (Auto) 10^3/uL Sodium (136-145) mEq/L Potassium (3.5-5.0) mEq/L Chloride (98-106) mEq/L Carbon Dioxide (21-32) mmol/L BUN (7-18) mg/dL Creatinine (0.6-1.0) mg/dL Est Cr Clr Drug Dosing mL/min Estimated GFR (MDRD) (>=60) mL/min Glucose (75-99) mg/dL Lactic Acid 0.9 (0.4-2.0) mmol/L Calcium (8.4-10.1) mg/dL Total Bilirubin (0.0-1.0) mg/dL AST (15-37) U/L ALT (12-78) U/L Alkaline Phosphatase (46-116) U/L Troponin I (0.00-0.06) ng/mL Total Protein (6.4-8.2) g/dL Albumin (3.4-5.0) g/dL Urine Color (YELLOW) Urine Appearance (CLEAR) Urine pH (4.5-8.0) Ur Specific [place] (1.003-1.020) Urine Protein (NEGATIVE) mg/dL Urine Glucose (UA) (NEGATIVE) mg/dL Urine Ketones (NEGATIVE) mg/dL Urine Occult Blood (NEGATIVE) Urine Nitrite (NEGATIVE) Urine Bilirubin (NEGATIVE) Urine Urobilinogen (0.2-1.0) EU/dL Ur Leukocyte Esterase (NEGATIVE) - Radiology Interpretation Free Text/Narrative:: cxr: No infiltrate, no pulmonary edema, no cardiomegaly. CT head: No acute findings CT Results Date: 12/18/18 CT Results Time: 09:00 Departure - Departure Time of Disposition: 10:00 Disposition: Refer to Observation Condition: Fair Clinical Impression: UTI, Urinary tract infectious disease, Vertigo, Dehydration, General weakness - Discharge Information *PRESCRIPTION DRUG MONITORING PROGRAM REVIEWED*: Not Applicable *COPY OF PRESCRIPTION DRUG MONITORING REPORT IN PATIENT DANILO: Not Applicable - My Orders Last 24 Hours: My Active Orders 12/18/18 08:12 Chest 1V Frontal [CR] Stat Head wo Cont [CT] Stat 12/18/18 08:13 Blood Culture x2 Reflex Set [OM.PC] Stat 12/18/18 08:31 CULTURE BLOOD [BC] Stat 12/18/18 08:54 CULTURE BLOOD [BC] Stat 12/18/18 09:05 CULTURE URINE [RM] Stat - Assessment/Plan Last 24 Hours: My Active Orders 12/18/18 08:12 Chest 1V Frontal [CR] Stat Head wo Cont [CT] Stat 12/18/18 08:13 Blood Culture x2 Reflex Set [OM.PC] Stat 12/18/18 08:31 CULTURE BLOOD [BC] Stat 12/18/18 08:54 CULTURE BLOOD [BC] Stat 12/18/18 09:05 CULTURE URINE [RM] Stat Plan: PLEASE SEE RN NOTE FOR PFSH. PLEASE USE ER H&P ADMIT H&P.
[2018-12-18 08:54] LABS: CHLORIDE,CL 105 mEq/L (98-106); SODIUM,NA 142 mEq/L (136-145)
[2018-12-18] MEDS ORDERED: Acetaminophen 325 MG Tab PO PRN (10:20)
[2018-12-18] MEDS ORDERED: Sodium Chloride 0.9% 1,000 ML IV SCH (10:20)
[2018-12-18] MEDS ORDERED: Ibuprofen 200 MG Tab PO PRN (10:20)
[2018-12-18] MEDS ORDERED: Ondansetron 4 MG/2 ML SDV IV PRN (10:20)
[2018-12-18] MEDS ORDERED: cefTRIAXone 1 GM Vial IVPUSH SCH (10:30)
[2018-12-18] MEDS ORDERED: Enoxaparin 40 MG/0.4 ML Syringe SUBCUT SCH (10:30)
[2018-12-18] MEDS ORDERED: **PTOM** Pantoprazole 40 MG Tab.CR PO PRN (10:45)
[2018-12-18] MEDS: PROCHLORPERAZINE 10 MG PO PRN (18:56)
[2018-12-18] MEDS ORDERED: Donepezil 5 MG Tab PO SCH (20:00)
[2018-12-18] MEDS: **PTOM** Mirtazapine 15 MG Tab PO SCH (21:09)
[2018-12-18] MEDS: RISPERIDONE 0.25 MG PO SCH (21:09)
[2018-12-19] MEDS: Enoxaparin 40 MG/0.4 ML Syringe SUBCUT SCH (07:19)
[2018-12-19] MEDS: cefTRIAXone 1 GM Vial IVPUSH SCH (07:19)
[2018-12-19] MEDS: PROCHLORPERAZINE 10 MG PO PRN (07:19)
[2018-12-19 07:35] LABS: CHLORIDE,CL 106 mEq/L (98-106); SODIUM,NA 141 mEq/L (136-145)
[2018-12-19] MEDS ORDERED: amLODIPine 2.5 MG Tab PO SCH (08:00)
[2018-12-19] MEDS ORDERED: Potassium Chloride 10 MEQ Tab.ER PO SCH (08:00)
[2018-12-19] MEDS: AMLODIPINE 5 MG PO SCH (08:44)
[2018-12-19] MEDS: **PTOM** Furosemide 40 MG Tab PO SCH (08:45)
[2018-12-19] MEDS: POTASSIUM CHLORIDE 20 MEQ PO SCH (08:45)
[2018-12-19] MEDS: FOLIC ACID 1 MG PO SCH (08:45)
[2018-12-19] MEDS: RISPERIDONE 0.25 MG PO SCH ×2 (08:45→19:27)
[2018-12-19] MEDS: ROSUVASTATIN CALCIUM 10 MG PO SCH ×2 (08:48→19:27)
[2018-12-19] MEDS: **PTOM** Mirtazapine 15 MG Tab PO SCH (19:26)
[2018-12-19] MEDS ORDERED: DONEPEZIL 10 MG PO SCH (20:00)
--- NOTE | 2018-12-19 21:01 | PCM.PN ---
- General Info Date of Service: 12/19/18 Admission Dx/Problem (Free Text): UTI Weakness Dehydration Vertigo Functional Status: Reports: Pain Controlled, Tolerating Diet, Ambulating, Urinating - Review of Systems General: Reports: Weakness. Denies: Fever HEENT: Reports: No Symptoms Pulmonary: Denies: Shortness of Breath, Cough Cardiovascular: Denies: Chest Pain Gastrointestinal: Denies: Abdominal Pain, Nausea, Vomiting Genitourinary: Reports: Frequency, Urgency Musculoskeletal: Reports: No Symptoms Neurological: Reports: Dizziness, Weakness Psychiatric: Reports: Confusion - Patient Data Vitals - Most Recent: Last Vital Signs Temp 98 F 12/19/18 16:00 Pulse 90 12/19/18 16:00 Resp 18 12/19/18 16:00 BP 148/64 H 12/19/18 16:00 Pulse Ox 97 12/19/18 16:00 Orthostatic Blood Pressure [ 128/67 Standing] Orthostatic Blood Pressure [ 136/70 Sitting] Orthostatic Blood Pressure [ 134/72 Supine] Weight - Most Recent: 129 lb Lab Results Last 24 Hours: Laboratory Results - last 24 hr 12/19/18 12/19/18 Range/Units 07:00 07:00 WBC 5.9 (5.0-10.0) 10^3/uL RBC 3.82 L (4.00-5.50) 10^6/uL Hgb 12.1 (12.0-16.0) g/dL Hct 35.4 L (37.0-47.0) % MCV 92.7 (82.0-94.0) fL MCH 31.7 (27.0-32.0) pg MCHC 34.2 (33.0-38.0) g/dL RDW Coeff of Miguel Angel 12.7 (11.0-15.0) % Plt Count 196 (150-400) 10^3/uL Neut % (Auto) 72.5 (35-85) % Lymph % (Auto) 17.2 (10-55) % [place] % (Auto) 8.5 (0-16) % Eos % (Auto) 1.5 (0-5) % Baso % (Auto) 0.3 (0-3) % Neut # (Auto) 4.24 (1.80-7.00) 10^3/uL Lymph # (Auto) 1.01 (1.00-4.80) 10^3/uL [place] # (Auto) 0.50 (0.00-0.80) 10^3/uL Eos # (Auto) 0.09 (0.00-0.45) 10^3/uL Baso # (Auto) 0.02 10^3/uL Sodium 141 (136-145) mEq/L Potassium 4.0 (3.5-5.0) mEq/L Chloride 106 (98-106) mEq/L Carbon Dioxide 27 (21-32) mmol/L BUN 15 (7-18) mg/dL Creatinine 0.9 (0.6-1.0) mg/dL Est Cr Clr Drug Dosing 50.84 mL/min Estimated GFR (MDRD) > 60 (>=60) mL/min Glucose 103 H (75-99) mg/dL Calcium 8.6 (8.4-10.1) mg/dL Keith Results Last 24 Hours: Microbiology 12/18/18 09:05 Urine Culture - Preliminary Urine, Clean Catch Gram Negative Rods 12/18/18 08:54 Aerobic Blood Culture - Preliminary Blood - Venous - Lab Draw NO GROWTH AFTER 1 DAY Anaerobic Blood Culture - Preliminary NO GROWTH AFTER 1 DAY 12/18/18 08:31 Aerobic Blood Culture - Preliminary Blood - Venous NO GROWTH AFTER 1 DAY Anaerobic Blood Culture - Preliminary NO GROWTH AFTER 1 DAY Med Orders - Current: Current Medications Acetaminophen (Tylenol) 650 mg PO Q4H PRN PRN Reason: Pain (Mild 1-3)/fever Ceftriaxone Sodium (Rocephin) 1 gm IVPUSH Q24H [facility] Last Admin: 12/19/18 07:19 Dose: 1 gm Enoxaparin Sodium (Lovenox) 40 mg SUBCUT Q24H [facility] Last Admin: 12/19/18 07:19 Dose: 40 mg Folic Acid (Folic Acid) 1 mg PO DAILY [facility] Last Admin: 12/19/18 08:45 Dose: 1 mg Furosemide (Lasix) 40 mg PO DAILY [facility] Last Admin: 12/19/18 08:45 Dose: 40 mg Ibuprofen (Motrin) 600 mg PO Q6H PRN PRN Reason: Pain (mild 1-3) Mirtazapine (Remeron) 15 mg PO BEDTIME [facility] Last Admin: 12/19/18 19:26 Dose: 15 mg Ptom Rosuvastatin Calcium ] 10 Mg 10 mg PO BEDTIME [facility] Last Admin: 12/19/18 19:27 Dose: 10 mg Ptom Amlodipine (5 Mg Tab) 5 mg PO DAILY [facility] Last Admin: 12/19/18 08:44 Dose: 5 mg Ptom Potassium (Chloride 20meq Tab) 20 meq PO DAILY [facility] Last Admin: 12/19/18 08:45 Dose: 20 meq Ptom Donepezil (10mg Tab) 10 mg PO BEDTIME [facility] Last Admin: 12/19/18 19:26 Dose: 10 mg Ondansetron HCl (Zofran) 4 mg IV Q6H PRN PRN Reason: Nausea/Vomiting Pantoprazole Sodium (Protonix) 40 mg PO DAILY PRN PRN Reason: HEARTBURN Prochlorperazine Maleate (Compazine) 5 mg PO Q8H PRN PRN Reason: DIZZINESSS Last Admin: 12/18/18 18:56 Dose: 5 mg Risperidone (Risperidal) 0.25 mg PO BID [facility] Last Admin: 12/19/18 19:27 Dose: 0.25 mg Discontinued Medications Amlodipine Besylate (Norvasc) 5 mg PO DAILY [facility] Last Admin: 12/19/18 08:49 Dose: Not Given Ceftriaxone Sodium (Rocephin) 1 gm IVPUSH Q24H [facility] Last Admin: 12/18/18 10:39 Dose: 1 gm Donepezil HCl (Aricept) 10 mg PO BEDTIME [facility] Last Admin: 12/18/18 21:08 Dose: 10 mg Enoxaparin Sodium (Lovenox) 40 mg SUBCUT Q24H [facility] Last Admin: 12/18/18 10:40 Dose: 40 mg Sodium Chloride (Normal Saline) 1,000 mls @ 100 mls/hr IV ASDIRECTED [facility] Stop: 12/18/18 20:19 Last Admin: 12/18/18 10:39 Dose: 100 mls/hr Potassium Chloride (Klor-Con 10) 20 meq PO DAILY [facility] Last Admin: 12/19/18 08:21 Dose: Not Given - Exam General: Alert, Oriented (person only), Cooperative HEENT: Mucous Membr. Moist/[place] Neck: Supple Lungs: Clear to Auscultation, Normal Respiratory Effort Cardiovascular: Regular Rate, Regular Rhythm GI/Abdominal Exam: Normal Bowel Sounds, Soft, Non-Tender Extremities: Normal Inspection, No Pedal Edema Skin: Warm, Dry Neurological: No New Focal Deficit - Problem List & Annotations (1) Dehydration SNOMED Code(s): 77114973 Code(s): E86.0 - DEHYDRATION Status: Acute Priority: High Current Visit : Yes (2) General weakness SNOMED Code(s): 18473168 Code(s): R53.1 - WEAKNESS Status: Acute Priority: High Current Visit: Yes (3) UTI, Urinary tract infectious disease SNOMED Code(s): 24586880 Code(s): N39.0 - URINARY TRACT INFECTION, SITE NOT SPECIFIED Status: Acute Priority: High Current Visit: Yes (4) Vertigo SNOMED Code(s): 087062163 Code(s): R42 - DIZZINESS AND GIDDINESS Status: Acute Priority: High Current Visit: Yes - Problem List Review Problem List Initiated/Reviewed/Updated: Yes - My Orders Last 24 Hours: My Active Orders 12/19/18 11:28 Orthostatic Vital Signs [RC] STAT - Assessment Assessment:: UTI Weakness Vertigo Dehydration - Plan Plan:: Patient alert, oriented to person only. Denies any abdominal pain, complains of having to void frequently. Complains of dizziness. Nursing reports she is up to the bathroom frequently, voids in small amounts. Afebrile. reports concerned that the Lasix she was given for edema causes her to feel this way and she isn't able to rest well at night as a result. Is taking fluids well, minimal appetite. Labs stable, WBC normal. Urine culture shows gram negative rods. Will continue with IV antibiotics. Push fluids. Possible discharge home with tomorrow.
[2018-12-20 07:49] LABS: CHLORIDE,CL 106 mEq/L (98-106); SODIUM,NA 141 mEq/L (136-145)
[2018-12-20] MEDS: cefTRIAXone 1 GM Vial IVPUSH SCH (07:51)
[2018-12-20] MEDS: AMLODIPINE 5 MG PO SCH (07:52)
[2018-12-20] MEDS: POTASSIUM CHLORIDE 20 MEQ PO SCH (07:52)
[2018-12-20] MEDS: FOLIC ACID 1 MG PO SCH (07:52)
[2018-12-20] MEDS: Enoxaparin 40 MG/0.4 ML Syringe SUBCUT SCH (07:53)
[2018-12-20] MEDS: RISPERIDONE 0.25 MG PO SCH (07:53)
[2018-12-20 08:42] VITALS: BP 138/60
[2018-12-20] MEDS ORDERED: Furosemide 40 MG Tab PO SCH (09:00)
[2018-12-20] MEDS: **PTOM** Furosemide 40 MG Tab PO SCH (09:01)
--- NOTE | 2018-12-20 21:07 | PCM.DCSUM1 ---
Discharge Summary - Hospital Course Free Text/Narrative:: Patient presented to ER with increased weakness, frequency with urination and dizziness. Has been dealing with dizziness now for 6 months. Is seeing a neurologist in [place] for this. Has been on Compazine 5 mg TID but most recently , increased this to 10 mg TID. feels that has contributed to her weakness and ultimately reduced the dose on his own 2 days ago. He has noted decreased activity. Not ambulating well. Not eating as well. ER work up did show UTI. WAs admitted and started on IV Rocephin and IV fluids. Diagnosis: Stroke: No Modified Angelika Scale: No Symptoms at All Modified Angelika Scale Score: 0 - Discharge Data Discharge Date: 12/20/18 Discharge Disposition: Home, Self-Care 01 Condition: Good - Discharge Diagnosis/Problem(s) (1) Dehydration SNOMED Code(s): 52514084 ICD Code: E86.0 - DEHYDRATION Status: Acute Priority: High (2) General weakness SNOMED Code(s): 59223755 ICD Code: R53.1 - WEAKNESS Status: Acute Priority: High (3) UTI, Urinary tract infectious disease SNOMED Code(s): 01392287 ICD Code: N39.0 - URINARY TRACT INFECTION, SITE NOT SPECIFIED Status: Acute Priority: High (4) Vertigo SNOMED Code(s): 716275652 ICD Code: R42 - DIZZINESS AND GIDDINESS Status: Acute Priority: High - Patient Summary/Data Complications: none Consults: Consultations 12/18/18 15:11 PT Evaluation and Treatment [CONS] Routine Hospital Course: Patient is doing well. Is ambulating frequently with staff. Had been voiding very often, that has improved. She is eating well. No fevers. More alert and oriented. Aware of her surroundings today. Urine culture did show e coli, sensitive to Rocephin. has been concerned about her frequency of voiding all day and night at home, questioned if could stop the Lasix. Was started on that due to complaints of edema. Patient states she does not "want to swell up again". Opted to reduce to 20 mg per day. Continue with Ceftin on discharge. Follow up with Dr. Dutton in 10 days. - Patient Instructions Diet: Usual Diet as Tolerated Activity: As Tolerated - Discharge Plan *PRESCRIPTION DRUG MONITORING PROGRAM REVIEWED*: Not Applicable *COPY OF PRESCRIPTION DRUG MONITORING REPORT IN PATIENT DANILO: Not Applicable Prescriptions/Med Rec: Furosemide [Lasix] 20 mg PO DAILY #30 tab Sulfamethoxazole/Trimethoprim [Bactrim Ds Tablet] 1 each PO BID #20 tablet Home Medications: Home Meds Donepezil [Aricept] 10 mg PO BEDTIME 02/11/15 [History] Mirtazapine [Remeron] 15 mg PO BEDTIME 02/11/15 [History] Pantoprazole [ProTONIX] 40 mg PO DAILY PRN 02/11/15 [History] Rosuvastatin Calcium 10 mg PO BEDTIME 09/28/17 [History] Folic Acid 1 tab PO DAILY 12/18/18 [History] Potassium Chloride 1 tab PO DAILY 12/18/18 [History] Prochlorperazine [Compazine] 5 mg PO Q8H PRN 12/18/18 [History] amLODIPine [Norvasc] 5 mg PO DAILY 12/18/18 [History] risperiDONE 1 tab PO BID 12/18/18 [History] Furosemide [Lasix] 20 mg PO DAILY #30 tab 12/20/18 [Rx] Sulfamethoxazole/Trimethoprim [Bactrim Ds Tablet] 1 each PO BID #20 tablet 12/20 [Rx] Patient Handouts: Urinary Tract Infection, Adult Forms: ED Department Discharge Referrals: Dhruv Dutton MD [Primary Care Provider] - (follow up with Dr. Dutton in 10 days) - Discharge Summary/Plan Comment DC Time >30 min.: No - General Info Date of Service: 12/20/18 Admission Dx/Problem (Free Text: UTI Weakness Dehydration Vertigo Functional Status: Reports: Pain Controlled, Tolerating Diet, Ambulating - Review of Systems General: Reports: Weakness, Fatigue HEENT: Reports: No Symptoms Pulmonary: Denies: Shortness of Breath, Cough Cardiovascular: Denies: Chest Pain, Edema, Lightheadedness Gastrointestinal: Denies: Abdominal Pain, Nausea, Vomiting Genitourinary: Reports: Frequency Musculoskeletal: Reports: No Symptoms Skin: Reports: No Symptoms Neurological: Reports: Confusion, Dizziness - Patient Data Vitals - Most Recent: Last Vital Signs Temp 97.4 F 12/20/18 08:00 Pulse 75 12/20/18 08:00 Resp 16 12/20/18 08:00 BP 138/60 12/20/18 08:00 Pulse Ox 99 12/20/18 08:00 Orthostatic Blood Pressure [ 128/67 Standing] Orthostatic Blood Pressure [ 136/70 Sitting] Orthostatic Blood Pressure [ 134/72 Supine] Weight - Most Recent: 129 lb Lab Results - Last 24 hrs: Laboratory Results - last 24 hr 12/20/18 12/20/18 Range/Units 07:00 07:00 WBC 4.9 L (5.0-10.0) 10^3/uL RBC 3.95 L (4.00-5.50) 10^6/uL Hgb 12.7 (12.0-16.0) g/dL Hct 36.9 L (37.0-47.0) % MCV 93.4 (82.0-94.0) fL MCH 32.2 H (27.0-32.0) pg MCHC 34.4 (33.0-38.0) g/dL RDW Coeff of Miguel Angel 12.8 (11.0-15.0) % Plt Count 191 (150-400) 10^3/uL Neut % (Auto) 67.4 (35-85) % Lymph % (Auto) 19.4 (10-55) % [place] % (Auto) 11.0 (0-16) % Eos % (Auto) 1.8 (0-5) % Baso % (Auto) 0.4 (0-3) % Neut # (Auto) 3.30 (1.80-7.00) 10^3/uL Lymph # (Auto) 0.95 L (1.00-4.80) 10^3/uL [place] # (Auto) 0.54 (0.00-0.80) 10^3/uL Eos # (Auto) 0.09 (0.00-0.45) 10^3/uL Baso # (Auto) 0.02 10^3/uL Sodium 141 (136-145) mEq/L Potassium 3.9 (3.5-5.0) mEq/L Chloride 106 (98-106) mEq/L Carbon Dioxide 28 (21-32) mmol/L BUN 13 (7-18) mg/dL Creatinine 0.9 (0.6-1.0) mg/dL Est Cr Clr Drug Dosing 50.84 mL/min Estimated GFR (MDRD) > 60 (>=60) mL/min Glucose 114 H (75-99) mg/dL Calcium 8.8 (8.4-10.1) mg/dL [facility] Results - Last 24 hrs: Microbiology 12/18/18 09:05 Urine Culture - Final Urine, Clean Catch Escherichia Coli 12/18/18 08:54 Aerobic Blood Culture - Preliminary Blood - Venous - Lab Draw NO GROWTH AFTER 2 DAYS Anaerobic Blood Culture - Preliminary NO GROWTH AFTER 2 DAYS 12/18/18 08:31 Aerobic Blood Culture - Preliminary Blood - Venous NO GROWTH AFTER 2 DAYS Anaerobic Blood Culture - Preliminary NO GROWTH AFTER 2 DAYS Med Orders - Current: Current Medications Discontinued Medications Acetaminophen (Tylenol) 650 mg PO Q4H PRN PRN Reason: Pain (Mild 1-3)/fever Amlodipine Besylate (Norvasc) 5 mg PO DAILY [facility] Last Admin: 12/19/18 08:49 Dose: Not Given Ceftriaxone Sodium (Rocephin) 1 gm IVPUSH Q24H [facility] Last Admin: 12/18/18 10:39 Dose: 1 gm Ceftriaxone Sodium (Rocephin) 1 gm IVPUSH Q24H [facility] Last Admin: 12/20/18 07:51 Dose: 1 gm Donepezil HCl (Aricept) 10 mg PO BEDTIME [facility] Last Admin: 12/18/18 21:08 Dose: 10 mg Enoxaparin Sodium (Lovenox) 40 mg SUBCUT Q24H [facility] Last Admin: 12/18/18 10:40 Dose: 40 mg Enoxaparin Sodium (Lovenox) 40 mg SUBCUT Q24H [facility] Last Admin: 12/20/18 07:53 Dose: 40 mg Folic Acid (Folic Acid) 1 mg PO DAILY [facility] Last Admin: 12/20/18 07:52 Dose: 1 mg Furosemide (Lasix) 40 mg PO DAILY [facility] Last Admin: 12/20/18 09:01 Dose: Not Given Furosemide (Lasix) 20 mg PO DAILY [facility] Last Admin: 12/20/18 09:03 Dose: 20 mg Sodium Chloride (Normal Saline) 1,000 mls @ 100 mls/hr IV ASDIRECTED [facility] Stop: 12/18/18 20:19 Last Admin: 12/18/18 10:39 Dose: 100 mls/hr Ibuprofen (Motrin) 600 mg PO Q6H PRN PRN Reason: Pain (mild 1-3) Mirtazapine (Remeron) 15 mg PO BEDTIME [facility] Last Admin: 12/19/18 19:26 Dose: 15 mg Ptom Rosuvastatin Calcium ] 10 Mg 10 mg PO BEDTIME [facility] Last Admin: 12/19/18 19:27 Dose: 10 mg Ptom Amlodipine (5 Mg Tab) 5 mg PO DAILY [facility] Last Admin: 12/20/18 07:52 Dose: 5 mg Ptom Potassium (Chloride 20meq Tab) 20 meq PO DAILY [facility] Last Admin: 12/20/18 07:52 Dose: 20 meq Ptom Donepezil (10mg Tab) 10 mg PO BEDTIME [facility] Last Admin: 12/19/18 19:26 Dose: 10 mg Ondansetron HCl (Zofran) 4 mg IV Q6H PRN PRN Reason: Nausea/Vomiting Pantoprazole Sodium (Protonix) 40 mg PO DAILY PRN PRN Reason: HEARTBURN Potassium Chloride (Klor-Con 10) 20 meq PO DAILY [facility] Last Admin: 12/19/18 08:21 Dose: Not Given Prochlorperazine Maleate (Compazine) 5 mg PO Q8H PRN PRN Reason: DIZZINESSS Last Admin: 12/18/18 18:56 Dose: 5 mg Risperidone (Risperidal) 0.25 mg PO BID [facility] Last Admin: 12/20/18 07:53 Dose: 0.25 mg - Exam General: Reports: Alert, Oriented (person and place), Cooperative HEENT: Reports: Mucous Membr. Moist/[place] Neck: Reports: Supple Lungs: Reports: Clear to Auscultation, Normal Respiratory Effort Cardiovascular: Reports: Regular Rate, Regular Rhythm GI/Abdominal Exam: Normal Bowel Sounds, Soft, Non-Tender Extremities: Normal Inspection, No Pedal Edema Skin: Reports: Warm, Dry Neurological: Reports: No New Focal Deficit
== END 2018-12-20 09:32 | disposition home or self-care (01) ==
LOC: CC.ED 07:30 → UNDOADMIN 10:00 → UNDOADMOB 10:00 → CC.MS 10:00
PROVIDERS: ADMIT Nurse Practitioner; ATTEND Family Medicine
DX: N39.0 Urinary tract infection, site not specified (principal); B96.20 Unspecified Escherichia coli [E. coli] as the cause of diseases classified elsewhere; E86.0 Dehydration; R42 Dizziness and giddiness; R53.1 Weakness; I10 Essential (primary) hypertension; I25.2 Old myocardial infarction; Z88.0 Allergy status to penicillin; Z88.2 Allergy status to sulfonamides; Z79.899 Other long term (current) drug therapy
CPT/HCPCS: 36415; 70450; 71045; 80048; 80053; 81003; 83605; 84484; 85025; 87040; 87086; 87088; 87186; 93005; 96361; 96372; 96374; 96376; 97161-GP; 99285-25; A9270-GY; G0378; J0696; J1650; J7030; Q0164

== ENCOUNTER 2019-01-01 15:31 | Inpatient (IN) | payer MEDICARE, OTHER ==
[2019-01-01] MEDS ORDERED: Zolpidem 5 MG Tab PO PRN (16:45)
[2019-01-01] MEDS ORDERED: Sodium Chloride 0.9% 10 ML Syringe FLUSH PRN (16:45)
[2019-01-01] MEDS ORDERED: Scopolamine 1.5 MG Transdermal Patch TOP ONE (16:50)
[2019-01-01] MEDS ORDERED: Pantoprazole 40 MG Tab.CR PO PRN (17:15)
[2019-01-01] MEDS ORDERED: Prochlorperazine 10 MG Tab PO PRN (17:15)
[2019-01-01 17:29] LABS: CHLORIDE,CL 103 mEq/L (98-106); SODIUM,NA 136 mEq/L (136-145)
[2019-01-01] MEDS ORDERED: Simvastatin 40 MG Tab PO SCH (20:00)
[2019-01-01] MEDS ORDERED: ROSUVASTATIN 10 MG PO SCH (20:00)
[2019-01-01] MEDS: Mirtazapine 15 MG Tab PO SCH (20:13)
[2019-01-01] MEDS: risperiDONE 0.25 MG Tab PO SCH (20:13)
[2019-01-02] MEDS: risperiDONE 0.25 MG Tab PO SCH ×2 (07:22→19:15)
[2019-01-02] MEDS: Folic Acid 1 MG Tab PO SCH (07:22)
[2019-01-02] MEDS: Furosemide 40 MG Tab PO SCH (07:23)
[2019-01-02] MEDS ORDERED: AMLODIPINE 5 MG PO SCH (08:00)
[2019-01-02] MEDS ORDERED: Potassium Chloride 10 MEQ Tab.ER PO SCH (08:00)
[2019-01-02] MEDS ORDERED: amLODIPine 2.5 MG Tab PO SCH (08:00)
[2019-01-02] MEDS: Mirtazapine 15 MG Tab PO SCH (19:15)
--- NOTE | 2019-01-02 22:56 | PCM.PN ---
- General Info Date of Service: 01/02/19 Admission Dx/Problem (Free Text): Dizziness Functional Status: Reports: Pain Controlled, Tolerating Diet, Ambulating, Urinating - Review of Systems General: Denies: Fever, Weakness, Fatigue HEENT: Reports: No Symptoms Pulmonary: Denies: Shortness of Breath, Cough Cardiovascular: Denies: Chest Pain, Edema, Lightheadedness Gastrointestinal: Reports: Nausea. Denies: Abdominal Pain, Vomiting Genitourinary: Reports: Frequency Musculoskeletal: Reports: No Symptoms Skin: Reports: No Symptoms Neurological: Reports: Dizziness - Patient Data Vitals - Most Recent: Last Vital Signs Temp 97.9 F 01/02/19 18:48 Pulse 82 01/02/19 18:48 Resp 16 01/02/19 18:48 BP 129/62 01/02/19 18:48 Pulse Ox 99 01/02/19 18:48 Weight - Most Recent: 129 lb 8 oz Med Orders - Current: Current Medications Folic Acid (Folic Acid) 1 mg PO DAILY [facility] Last Admin: 01/02/19 07:22 Dose: 1 mg Furosemide (Lasix) 40 mg PO DAILY [facility] Last Admin: 01/02/19 07:23 Dose: 40 mg Mirtazapine (Remeron) 15 mg PO BEDTIME [facility] Last Admin: 01/02/19 19:15 Dose: 15 mg Pantoprazole Sodium (Protonix) 40 mg PO DAILY PRN PRN Reason: Heartburn Potassium Chloride (Klor-Con 10) 20 meq PO DAILY [facility] Risperidone (Risperidal) 0.25 mg PO BID [facility] Last Admin: 01/02/19 19:15 Dose: 0.25 mg Sodium Chloride (Saline Flush) 10 ml FLUSH ASDIRECTED PRN PRN Reason: Keep Vein Open Zolpidem Tartrate (Ambien) 5 mg PO BEDTIME PRN PRN Reason: Sleep Discontinued Medications Amlodipine Besylate (Norvasc) 5 mg PO DAILY [facility] Ptom Amlodipine (5 Mg Tab) 5 mg PO DAILY [facility] Last Admin: 01/02/19 07:23 Dose: 5 mg Ptom Potassium (Chloride 20 Meq Tab) 20 meq PO DAILY [facility] Last Admin: 01/02/19 07:22 Dose: 20 meq Ptom Rosuvastatin 10 Mg Tab 10 mg PO BEDTIME [facility] Last Admin: 01/01/19 20:12 Dose: 10 mg Potassium Chloride (Klor-Con 10) 20 meq PO DAILY [facility] Prochlorperazine Maleate (Compazine) 5 mg PO Q8H PRN PRN Reason: Dizziness Scopolamine (Transderm-Scop) 1.5 mg TOP ONETIME ONE Stop: 01/01/19 16:51 Last Admin: 01/01/19 17:29 Dose: 1.5 mg Simvastatin (Zocor) 40 mg PO BEDTIME [facility] - Exam General: Alert, Oriented HEENT: Mucous Membr. Moist/[place] Neck: Supple Lungs: Clear to Auscultation, Normal Respiratory Effort Cardiovascular: Regular Rate, Regular Rhythm GI/Abdominal Exam: Normal Bowel Sounds, Soft, Non-Tender Extremities: Normal Inspection, No Pedal Edema Skin: Warm, Dry Neurological: No New Focal Deficit - Problem List & Annotations (1) Failure to thrive SNOMED Code(s): 21482659 Code(s): TPE0796 - Status: Acute Priority: High Current Visit: Yes (2) General weakness SNOMED Code(s): 82322884 Code(s): R53.1 - WEAKNESS Status: Acute Priority: High Current Visit: Yes (3) Vertigo SNOMED Code(s): 585059178 Code(s): R42 - DIZZINESS AND GIDDINESS Status: Acute Priority: High Current Visit: Yes - Problem List Review Problem List Initiated/Reviewed/Updated: Yes - My Orders Last 24 Hours: My Active Orders 01/02/19 09:17 Patient Status [ADT] Routine - Assessment Assessment:: Vulnerable Adult Dizziness Patient resting quietly but states she is dizzy. When describing her dizzines, states gets nauseated and sometimes the room spins. She is eating well this am despite this. Patient up to bathroom 2-3 times per hour, doesn't often go, unable to recall the times prior to being to the bathroom. in room. Admits is having a hard time "keeping up with everything" Patient does not sleep well, up to bathroom all the time. States "can't remember what she gets up for or looks in the fridge for". Certainly cannot manage to be alone at any point of time. Did discuss residential placement with both of them. She does get tearful but states will go if she needs to. All labs on admit are normal. Patient is unable to care for self, exhausted from trying to be caregiver. Transfer to acute inpatient due to being vulnerable adult. Will stop Sabrina Toro. Continue use of scopolamine patch to see if helps dizziness and nausea. support services coordinator aware, arrange for placement to [facility] when able.
[2019-01-03] MEDS: Potassium Chloride 10 MEQ Tab.ER PO SCH (07:57)
[2019-01-03] MEDS: Furosemide 40 MG Tab PO SCH (07:57)
[2019-01-03] MEDS: Folic Acid 1 MG Tab PO SCH (07:57)
[2019-01-03] MEDS: risperiDONE 0.25 MG Tab PO SCH ×2 (07:58→19:07)
[2019-01-03] MEDS: Mirtazapine 15 MG Tab PO SCH (19:07)
--- NOTE | 2019-01-03 21:16 | PCM.PN ---
- General Info Date of Service: 01/03/19 Admission Dx/Problem (Free Text): Dizziness Functional Status: Reports: Pain Controlled, Tolerating Diet, Ambulating, Urinating - Review of Systems General: Reports: Fatigue. Denies: Fever, Weakness HEENT: Reports: No Symptoms Pulmonary: Denies: Shortness of Breath, Cough, Wheezing Cardiovascular: Denies: Chest Pain, Edema, Lightheadedness Gastrointestinal: Reports: Nausea. Denies: Abdominal Pain, Vomiting Genitourinary: Reports: Frequency Musculoskeletal: Reports: No Symptoms Neurological: Reports: Confusion, Dizziness - Patient Data Vitals - Most Recent: Last Vital Signs Temp 97.8 F 01/03/19 20:00 Pulse 74 01/03/19 20:00 Resp 18 01/03/19 20:00 BP 127/59 L 01/03/19 20:00 Pulse Ox 99 01/03/19 20:00 Weight - Most Recent: 129 lb 8 oz Med Orders - Current: Current Medications Folic Acid (Folic Acid) 1 mg PO DAILY [facility] Last Admin: 01/03/19 07:57 Dose: 1 mg Furosemide (Lasix) 40 mg PO DAILY [facility] Last Admin: 01/03/19 07:57 Dose: 40 mg Mirtazapine (Remeron) 15 mg PO BEDTIME [facility] Last Admin: 01/03/19 19:07 Dose: 15 mg Pantoprazole Sodium (Protonix) 40 mg PO DAILY PRN PRN Reason: Heartburn Potassium Chloride (Klor-Con 10) 20 meq PO DAILY [facility] Last Admin: 01/03/19 07:57 Dose: 20 meq Risperidone (Risperidal) 0.25 mg PO BID [facility] Last Admin: 01/03/19 19:07 Dose: 0.25 mg Sodium Chloride (Saline Flush) 10 ml FLUSH ASDIRECTED PRN PRN Reason: Keep Vein Open Zolpidem Tartrate (Ambien) 5 mg PO BEDTIME PRN PRN Reason: Sleep Discontinued Medications Amlodipine Besylate (Norvasc) 5 mg PO DAILY [facility] Ptom Amlodipine (5 Mg Tab) 5 mg PO DAILY [facility] Last Admin: 01/02/19 07:23 Dose: 5 mg Ptom Potassium (Chloride 20 Meq Tab) 20 meq PO DAILY [facility] Last Admin: 01/02/19 07:22 Dose: 20 meq Ptom Rosuvastatin 10 Mg Tab 10 mg PO BEDTIME [facility] Last Admin: 01/01/19 20:12 Dose: 10 mg Potassium Chloride (Klor-Con 10) 20 meq PO DAILY [facility] Prochlorperazine Maleate (Compazine) 5 mg PO Q8H PRN PRN Reason: Dizziness Scopolamine (Transderm-Scop) 1.5 mg TOP ONETIME ONE Stop: 01/01/19 16:51 Last Admin: 01/01/19 17:29 Dose: 1.5 mg Simvastatin (Zocor) 40 mg PO BEDTIME [facility] - Exam General: Alert, Oriented (person and place), Cooperative HEENT: Mucous Membr. Moist/[place] Neck: Supple Lungs: Clear to Auscultation, Normal Respiratory Effort Cardiovascular: Regular Rate, Regular Rhythm GI/Abdominal Exam: Normal Bowel Sounds, Soft, Non-Tender Extremities: Normal Inspection, No Pedal Edema Skin: Warm, Dry Neurological: No New Focal Deficit - Problem List & Annotations (1) Failure to thrive SNOMED Code(s): 71877509 Code(s): BUD3696 - Status: Acute Priority: High Current Visit: Yes (2) General weakness SNOMED Code(s): 53675522 Code(s): R53.1 - WEAKNESS Status: Acute Priority: High Current Visit: Yes (3) Vertigo SNOMED Code(s): 898734672 Code(s): R42 - DIZZINESS AND GIDDINESS Status: Acute Priority: High Current Visit: Yes - Problem List Review Problem List Initiated/Reviewed/Updated: Yes - Assessment Assessment:: Vulnerable Adult Dizziness Patient resting quietly but states she is dizzy. When describing her dizzines, states gets nauseated and sometimes the room spins. She is eating well this am despite this. Patient up to bathroom 2-3 times per hour, doesn't often go, unable to recall the times prior to being to the bathroom. in room. Admits is having a hard time "keeping up with everything" Patient does not sleep well, up to bathroom all the time. States "can't remember what she gets up for or looks in the fridge for". Certainly cannot manage to be alone at any point of time. Did discuss senior care placement with both of them. She does get tearful but states will go if she needs to. All labs on admit are normal. Patient is unable to care for self, exhausted from trying to be caregiver. Transfer to acute inpatient due to being vulnerable adult. Will stop Sabrina Toro. Continue use of scopolamine patch to see if helps dizziness and nausea. greeter guest services aware, arrange for placement to [facility] when able. - Plan Plan:: 01-03-2019 Patient resting quietly in chair. Continues to complain of nausea and dizziness. Staff has not noted any outward signs of dizziness, is steady. Continues to complain frequently of need to void. No vomiting. Tolerating meals. Will continue with PT. Plan to transfer to [facility] on Tuesday as unable to care for self.
[2019-01-04] MEDS: Furosemide 40 MG Tab PO SCH (07:43)
[2019-01-04] MEDS: Potassium Chloride 10 MEQ Tab.ER PO SCH (07:43)
[2019-01-04] MEDS: risperiDONE 0.25 MG Tab PO SCH ×2 (07:43→20:14)
[2019-01-04] MEDS: Folic Acid 1 MG Tab PO SCH (07:43)
[2019-01-04] MEDS ORDERED: Scopolamine 1.5 MG Transdermal Patch TRDERM SCH (09:15)
--- NOTE | 2019-01-04 12:13 | PCM.PN ---
- General Info Date of Service: 01/04/19 Admission Dx/Problem (Free Text): Dizziness Functional Status: Reports: Pain Controlled, Tolerating Diet, Ambulating, Urinating - Review of Systems General: Reports: Weakness, Fatigue. Denies: Malaise HEENT: Denies: Ear Pain, Sinus Congestion, Rhinitis Pulmonary: Denies: Shortness of Breath, Cough Cardiovascular: Denies: Chest Pain, Edema, Lightheadedness Gastrointestinal: Denies: Abdominal Pain, Nausea, Vomiting Genitourinary: Reports: Frequency Musculoskeletal: Reports: No Symptoms Skin: Reports: No Symptoms Neurological: Reports: No Symptoms - Patient Data Vitals - Most Recent: Last Vital Signs Temp 97.7 F 01/04/19 04:47 Pulse 72 01/04/19 04:47 Resp 20 01/04/19 04:47 BP 130/64 01/04/19 04:47 Pulse Ox 97 01/04/19 04:47 Weight - Most Recent: 129 lb 8 oz Med Orders - Current: Current Medications Folic Acid (Folic Acid) 1 mg PO DAILY [facility] Last Admin: 01/04/19 07:43 Dose: 1 mg Furosemide (Lasix) 40 mg PO DAILY [facility] Last Admin: 01/04/19 07:43 Dose: 40 mg Mirtazapine (Remeron) 15 mg PO BEDTIME [facility] Last Admin: 01/03/19 19:07 Dose: 15 mg Pantoprazole Sodium (Protonix) 40 mg PO DAILY PRN PRN Reason: Heartburn Potassium Chloride (Klor-Con 10) 20 meq PO DAILY [facility] Last Admin: 01/04/19 07:43 Dose: 20 meq Risperidone (Risperidal) 0.25 mg PO BID [facility] Last Admin: 01/04/19 07:43 Dose: 0.25 mg Scopolamine (Transderm-Scop) 1.5 mg TRDERM Q72H [facility] Last Admin: 01/04/19 10:06 Dose: 1.5 mg Sodium Chloride (Saline Flush) 10 ml FLUSH ASDIRECTED PRN PRN Reason: Keep Vein Open Zolpidem Tartrate (Ambien) 5 mg PO BEDTIME PRN PRN Reason: Sleep Discontinued Medications Amlodipine Besylate (Norvasc) 5 mg PO DAILY [facility] Ptom Amlodipine (5 Mg Tab) 5 mg PO DAILY [facility] Last Admin: 01/02/19 07:23 Dose: 5 mg Ptom Potassium (Chloride 20 Meq Tab) 20 meq PO DAILY [facility] Last Admin: 01/02/19 07:22 Dose: 20 meq Ptom Rosuvastatin 10 Mg Tab 10 mg PO BEDTIME [facility] Last Admin: 01/01/19 20:12 Dose: 10 mg Potassium Chloride (Klor-Con 10) 20 meq PO DAILY [facility] Prochlorperazine Maleate (Compazine) 5 mg PO Q8H PRN PRN Reason: Dizziness Scopolamine (Transderm-Scop) 1.5 mg TOP ONETIME ONE Stop: 01/01/19 16:51 Last Admin: 01/01/19 17:29 Dose: 1.5 mg Simvastatin (Zocor) 40 mg PO BEDTIME [facility] - Exam General: Alert, Oriented (oriented this am, knows it is 2019) HEENT: Mucous Membr. Moist/[place] Neck: Supple Lungs: Clear to Auscultation, Normal Respiratory Effort Cardiovascular: Regular Rate, Regular Rhythm GI/Abdominal Exam: Normal Bowel Sounds, Soft, Non-Tender Extremities: Normal Inspection, No Pedal Edema Skin: Warm, Dry Neurological: No New Focal Deficit - Problem List & Annotations (1) Failure to thrive SNOMED Code(s): 83415962 Code(s): GHV2406 - Status: Acute Priority: High Current Visit: Yes (2) General weakness SNOMED Code(s): 19087472 Code(s): R53.1 - WEAKNESS Status: Acute Priority: High Current Visit: Yes (3) Vertigo SNOMED Code(s): 235565248 Code(s): R42 - DIZZINESS AND GIDDINESS Status: Acute Priority: High Current Visit: Yes - Problem List Review Problem List Initiated/Reviewed/Updated: Yes - My Orders Last 24 Hours: My Active Orders 01/04/19 09:15 Scopolamine [Transderm-Scop] 1.5 mg TRDERM Q72H 01/05/19 05:11 BASIC METABOLIC PANEL,BMP [CHEM] AM C-REACTIVE PROTEIN [CHEM] AM CBC WITH AUTO DIFF [HEME] AM - Assessment Assessment:: Vulnerable Adult Dizziness Patient resting quietly but states she is dizzy. When describing her dizzines, states gets nauseated and sometimes the room spins. She is eating well this am despite this. Patient up to bathroom 2-3 times per hour, doesn't often go, unable to recall the times prior to being to the bathroom. in room. Admits is having a hard time "keeping up with everything" Patient does not sleep well, up to bathroom all the time. States "can't remember what she gets up for or looks in the fridge for". Certainly cannot manage to be alone at any point of time. Did discuss [facility] placement with both of them. She does get tearful but states will go if she needs to. All labs on admit are normal. Patient is unable to care for self, exhausted from trying to be caregiver. Transfer to acute inpatient due to being vulnerable adult. Will stop Sabrina Toro. Continue use of scopolamine patch to see if helps dizziness and nausea. manager of allied health services aware, arrange for placement to [facility] when able. - Plan Plan:: 01-03-2019 Patient resting quietly in chair. Continues to complain of nausea and dizziness. Staff has not noted any outward signs of dizziness, is steady. Continues to complain frequently of need to void. No vomiting. Tolerating meals. Will continue with PT. Plan to transfer to [facility] on Tuesday as unable to care for self. 01-04-2019 Patient states is feeling good this am. Ate well this am. Ambulating without outward signs of dizziness. Still has frequent urge to void. No fevers. Blood pressure stable. Is oriented x3 this. Exam stable. Will continue with PT. Transfer to [facility] tomorrow.
[2019-01-04] MEDS: Mirtazapine 15 MG Tab PO SCH (20:14)
[2019-01-05 07:35] LABS: CHLORIDE,CL 106 mEq/L (98-106); SODIUM,NA 142 mEq/L (136-145)
[2019-01-05] MEDS: Folic Acid 1 MG Tab PO SCH (07:36)
[2019-01-05] MEDS: Potassium Chloride 10 MEQ Tab.ER PO SCH (07:36)
[2019-01-05] MEDS: Furosemide 40 MG Tab PO SCH (07:36)
[2019-01-05] MEDS: risperiDONE 0.25 MG Tab PO SCH (07:37)
[2019-01-05 10:29] VITALS: BP 108/55
--- NOTE | 2019-01-05 11:59 | PCM.DCSUM1 ---
Discharge Summary - Hospital Course Free Text/Narrative:: Patient presented to clinic to see Dr. Dutton for ongoing dizziness, frequency with urination and confusion. Was seen by Dr. Calhoun, neurology, and blood pressure med was stopped. has not noted a change in her dizziness. Had not developed any fevers. Had previously been on meclizine, compazine and phenergan without relief. Admitted for further work labs. Start scopolamine patch. having more difficulty caring for patient due to her Alzheimer' s Dementia Diagnosis: Stroke: No Modified [place] Scale: No Symptoms at All Modified Angelika Scale Score: 0 - Discharge Data Discharge Date: 01/05/19 Discharge Disposition: DC/Tfer to [facility] 64 Condition: Good - Discharge Diagnosis/Problem(s) (1) Failure to thrive SNOMED Code(s): 99313961 ICD Code: [id number] - Status: Acute Priority: High (2) General weakness SNOMED Code(s): 83559548 ICD Code: R53.1 - WEAKNESS Status: Acute Priority: High (3) Vertigo SNOMED Code(s): 200931956 ICD Code: R42 - DIZZINESS AND GIDDINESS Status: Acute Priority: High - Patient Summary/Data Complications: none Consults: Consultations 01/01/19 16:45 Consult to Case Management/Restrike Hammer Operator [CONS] Routine Hospital Course: Patient stable. Continues to complain of dizziness with no outward signs, falls or vomiting. Has tolerated the scopolamine patch. Ambulating without difficulty. has expressed difficulty of caring for self due to her confusion, frequency of urination. Patient vulnerable adult, unable to care for self due to confusion. Arrangements made for transfer to [facility] for further care. Did stop Norvasc, Compazine and Crestor. Continue Aricept - Patient Instructions Diet: Usual Diet as Tolerated Activity: As Tolerated - Discharge Plan *PRESCRIPTION DRUG MONITORING PROGRAM REVIEWED*: No *COPY OF PRESCRIPTION DRUG MONITORING REPORT IN PATIENT DANILO: No Prescriptions/Med Rec: Scopolamine [Transderm-Scop] 1.5 mg TRDERM Q72H #10 patch Home Medications: Home Meds Donepezil [Aricept] 10 mg PO BEDTIME 02/11/15 [History] Mirtazapine [Remeron] 15 mg PO BEDTIME 02/11/15 [History] Pantoprazole [ProTONIX] 40 mg PO DAILY PRN 02/11/15 [History] Folic Acid 1 tab PO DAILY 12/18/18 [History] Potassium Chloride 1 tab PO DAILY 12/18/18 [History] risperiDONE 1 tab PO BID 12/18/18 [History] Furosemide [Lasix] 20 mg PO DAILY #30 tab 12/20/18 [Rx] Scopolamine [Transderm-Scop] 1.5 mg TRDERM Q72H #10 patch 01/05/19 [Rx] - Discharge Summary/Plan Comment DC Time >30 min.: Yes Discharge Summary/Plan Comment: Transfer to [facility]. Time with patient and 20 minutes Time for orders 15 minutes Time for documentation 15 minutes - General Info Date of Service: 01/05/19 Admission Dx/Problem (Free Text: Dizziness Functional Status: Reports: Pain Controlled, Tolerating Diet, Ambulating, Urinating - Review of Systems General: Reports: Weakness, Fatigue HEENT: Denies: Headaches, Sinus Congestion, Sore Throat Pulmonary: Denies: Shortness of Breath Cardiovascular: Denies: Chest Pain, Edema, Lightheadedness Gastrointestinal: Reports: Nausea. Denies: Abdominal Pain, Vomiting Genitourinary: Reports: Frequency Musculoskeletal: Reports: No Symptoms Skin: Reports: No Symptoms Neurological: Reports: Confusion - Patient Data Vitals - Most Recent: Last Vital Signs Temp 97.5 F 01/05/19 08:00 Pulse 66 01/05/19 08:00 Resp 20 01/05/19 08:00 BP 108/55 L 01/05/19 08:00 Pulse Ox 93 L 01/05/19 08:00 Weight - Most Recent: 129 lb 8 oz Lab Results - Last 24 hrs: Laboratory Results - last 24 hr 01/05/19 01/05/19 Range/Units 05:11 07:00 WBC 4.3 L (5.0-10.0) 10^3/uL RBC 4.02 (4.00-5.50) 10^6/uL Hgb 13.0 (12.0-16.0) g/dL Hct 37.8 (37.0-47.0) % MCV 94.0 (82.0-94.0) fL MCH 32.3 H (27.0-32.0) pg MCHC 34.4 (33.0-38.0) g/dL RDW Coeff of Miguel Angel 13.2 (11.0-15.0) % Plt Count 247 (150-400) 10^3/uL Neut % (Auto) 61.2 (35-85) % Lymph % (Auto) 26.6 (10-55) % Thomas % (Auto) 9.9 (0-16) % Eos % (Auto) 1.6 (0-5) % Baso % (Auto) 0.7 (0-3) % Neut # (Auto) 2.60 (1.80-7.00) 10^3/uL Lymph # (Auto) 1.13 (1.00-4.80) 10^3/uL Thomas # (Auto) 0.42 (0.00-0.80) 10^3/uL Eos # (Auto) 0.07 (0.00-0.45) 10^3/uL Baso # (Auto) 0.03 10^3/uL Sodium 142 (136-145) mEq/L Potassium 4.1 (3.5-5.0) mEq/L Chloride 106 (98-106) mEq/L Carbon Dioxide 31 (21-32) mmol/L BUN 23 H (7-18) mg/dL Creatinine 1.0 (0.6-1.0) mg/dL Est Cr Clr Drug Dosing 45.76 mL/min Estimated GFR (MDRD) 55 L (>=60) mL/min Glucose 107 H (75-99) mg/dL Calcium 9.3 (8.4-10.1) mg/dL C-Reactive Protein < 0.2 L (0.2-0.8) mg/dL Med Orders - Current: Current Medications Discontinued Medications Amlodipine Besylate (Norvasc) 5 mg PO DAILY [facility] Folic Acid (Folic Acid) 1 mg PO DAILY [facility] Last Admin: 01/05/19 07:36 Dose: 1 mg Furosemide (Lasix) 40 mg PO DAILY [facility] Last Admin: 01/05/19 07:36 Dose: 40 mg Mirtazapine (Remeron) 15 mg PO BEDTIME [facility] Last Admin: 01/04/19 20:14 Dose: 15 mg Ptom Amlodipine (5 Mg Tab) 5 mg PO DAILY [facility] Last Admin: 01/02/19 07:23 Dose: 5 mg Ptom Potassium (Chloride 20 Meq Tab) 20 meq PO DAILY [facility] Last Admin: 01/02/19 07:22 Dose: 20 meq Ptom Rosuvastatin 10 Mg Tab 10 mg PO BEDTIME [facility] Last Admin: 01/01/19 20:12 Dose: 10 mg Pantoprazole Sodium (Protonix) 40 mg PO DAILY PRN PRN Reason: Heartburn Potassium Chloride (Klor-Con 10) 20 meq PO DAILY [facility] Potassium Chloride (Klor-Con 10) 20 meq PO DAILY [facility] Last Admin: 01/05/19 07:36 Dose: 20 meq Prochlorperazine Maleate (Compazine) 5 mg PO Q8H PRN PRN Reason: Dizziness Risperidone (Risperidal) 0.25 mg PO BID [facility] Last Admin: 01/05/19 07:37 Dose: 0.25 mg Scopolamine (Transderm-Scop) 1.5 mg TOP ONETIME ONE Stop: 01/01/19 16:51 Last Admin: 01/01/19 17:29 Dose: 1.5 mg Scopolamine (Transderm-Scop) 1.5 mg TRDERM Q72H [facility] Last Admin: 01/04/19 10:06 Dose: 1.5 mg Simvastatin (Zocor) 40 mg PO BEDTIME [facility] Sodium Chloride (Saline Flush) 10 ml FLUSH ASDIRECTED PRN PRN Reason: Keep Vein Open Zolpidem Tartrate (Ambien) 5 mg PO BEDTIME PRN PRN Reason: Sleep - Exam General: Reports: Alert, Oriented HEENT: Reports: Mucous Membr. Moist/[place] Neck: Reports: Supple Lungs: Reports: Clear to Auscultation, Normal Respiratory Effort Cardiovascular: Reports: Regular Rate, Regular Rhythm GI/Abdominal Exam: Normal Bowel Sounds, Soft, Non-Tender Extremities: Normal Inspection, No Pedal Edema Skin: Reports: Warm, Dry Neurological: Reports: No New Focal Deficit
== END 2019-01-05 09:20 | DRG 149 ==
LOC: CC.FCMC 15:31 → UNDOADMOB 16:41 → CC.MS 16:41 → UNDOADMOB 16:45 → CC.MS 16:45 → INTOOBSV 01-02 09:15 → OBSVTOIN 01-02 09:15 → CC.MS 01-02 09:17 → OBSVTOIN 01-02 09:17
PROVIDERS: ADMIT Family Medicine; ATTEND Family Medicine
DX: R42 Dizziness and giddiness (principal); G30.9 Alzheimer's disease, unspecified; F02.80 Dementia in other diseases classified elsewhere, unspecified severity, without behavioral disturbance, psychotic disturbance, mood disturbance, and anxiety; R62.7 Adult failure to thrive; R35.0 Frequency of micturition; R41.0 Disorientation, unspecified; R53.1 Weakness; R55 Syncope and collapse; R11.0 Nausea; R26.2 Difficulty in walking, not elsewhere classified; E53.8 Deficiency of other specified B group vitamins; I11.0 Hypertensive heart disease with heart failure; H26.9 Unspecified cataract; I50.9 Heart failure, unspecified; F03.90 Unspecified dementia, unspecified severity, without behavioral disturbance, psychotic disturbance, mood disturbance, and anxiety; K21.9 Gastro-esophageal reflux disease without esophagitis; Z68.28 Body mass index [BMI] 28.0-28.9, adult; E78.5 Hyperlipidemia, unspecified; M17.10 Unilateral primary osteoarthritis, unspecified knee; G62.9 Polyneuropathy, unspecified; Z88.0 Allergy status to penicillin; Z88.2 Allergy status to sulfonamides; Z79.899 Other long term (current) drug therapy; I25.10 Atherosclerotic heart disease of native coronary artery without angina pectoris; I25.2 Old myocardial infarction; M81.0 Age-related osteoporosis without current pathological fracture; Z86.73 Personal history of transient ischemic attack (TIA), and cerebral infarction without residual deficits; Z90.710 Acquired absence of both cervix and uterus
CPT/HCPCS: 36415; 80048; 80053; 81001; 83735; 84484; 85025; 86140; 93005; A9270-GY; G0378

== ENCOUNTER 2019-07-09 12:54 | Emergency (ER) | payer MEDICARE, OTHER ==
[2019-07-09 12:57] VITALS: BP 119/54; PULSE 96
--- NOTE | 2019-07-09 13:26 | EDM.PDOC ---
ED HPI GENERAL MEDICAL PROBLEM - General Chief Complaint: General Stated Complaint: labs for transfer Time Seen by Provider: 07/09/19 13:12 Source of Information: Reports: Family, RN, Other History Limitations: Reports: No Limitations - History of Present Illness INITIAL COMMENTS - FREE TEXT/NARRATIVE: Patient has hip repair left hip with fracture. Patient was ambulating. Patient fell again on Tuesday and had xray done on . Showed fracture again. Surgeon reports needs surgery. [facility] called 911 to send patient to our ER. [facility]. No complaints other than left hip fracture with not able to walk, sit only. Onset Date: 07/04/19 Duration: Day(s): (5) Location: Reports: Lower Extremity, Left Severity: Moderate Improves with: Reports: None Worsens with: Reports: None Associated Symptoms: Reports: No Other Symptoms - Related Data Allergies Allergy/AdvReac Type Severity Reaction Status Date / Time penicillin Allergy Rash Verified 07/09/19 12:58 Sulfa (Sulfonamide Allergy Rash Verified 07/09/19 12:58 Antibiotics) Home Meds: Home Meds Donepezil [Aricept] 10 mg PO BEDTIME 02/11/15 [History] Mirtazapine [Remeron] 15 mg PO BEDTIME 02/11/15 [History] Pantoprazole [ProTONIX] 40 mg PO DAILY PRN 02/11/15 [History] Folic Acid 1 tab PO DAILY 12/18/18 [History] Potassium Chloride 1 tab PO DAILY 12/18/18 [History] risperiDONE 1 tab PO BID 12/18/18 [History] Furosemide [Lasix] 20 mg PO DAILY #30 tab 12/20/18 [Rx] Scopolamine [Transderm-Scop] 1.5 mg TRDERM Q72H #10 patch 01/05/19 [Rx] Past Medical History - Past Health History Medical/Surgical History: Denies Medical/Surgical History Cardiovascular History: Reports: Hypertension, [place] Gastrointestinal History: Reports: Other (See Below) Other Gastrointestinal History: Diverticulitis MANAGER COMPLETIONS History: Reports: Other (See Below) Other MANAGER COMPLETIONS History: Hysterectomy Other Musculoskeletal History: Neuropathy Neurological History: Reports: Alzheimers Disease, Vertigo - Past Surgical History GI Surgical History: Reports: Appendectomy, Cholecystectomy, Colonoscopy Female Surgical History: Reports: Hysterectomy Musculoskeletal Surgical History: Reports: Knee Replacement Social & Family History - Family History Family Medical History: Noncontributory Cardiac: Reports: Other (See Below) Other Cardiac Family History: Heart problems Oncologic: Reports: Breast - Tobacco Use Smoking Status *Q: Never Smoker - Caffeine Use Caffeine Use: Reports: None - Recreational Drug Use Recreational Drug Use: No ED ROS GENERAL - Review of Systems Review Of Systems: See Below Constitutional: Reports: No Symptoms HEENT: Reports: No Symptoms Respiratory: Reports: No Symptoms Cardiovascular: Reports: No Symptoms Endocrine: Reports: No Symptoms GI/Abdominal: Reports: No Symptoms Musculoskeletal: Reports: Other (wont walk. will sit) Skin: Reports: No Symptoms Neurological: Reports: No Symptoms ED EXAM, GENERAL - Physical Exam Exam: See Below Exam Limited By: No Limitations General Appearance: Alert, No Apparent Distress Ears: Normal External Exam, Normal Canal, Hearing Grossly Normal, Normal TMs Ear Exam: Bilateral Ear: Auricle Normal, Canal Normal, TM normal Nose: Normal Inspection, Normal Mucosa, No Blood Throat/Mouth: Normal Inspection, Normal Lips, Normal Gums, Normal Oropharynx, Normal Voice, No Airway Compromise Head: Atraumatic, Normocephalic Neck: Normal Inspection, Supple, Non-Tender, Full Range of Motion Respiratory/Chest: No Respiratory Distress, Lungs Clear, Normal Breath Sounds, No Accessory Muscle Use, Chest Non-Tender Cardiovascular: Normal Peripheral Pulses, Regular Rate, Rhythm, No Edema, No Gallop, No JVD, No Murmur, No Rub Peripheral Pulses: 2+: Femoral (L), Femoral (R), Popliteal (L), Popliteal (R), Posterior Tibial (L), Posterior Tibial (R), Dorsalis Pedis (L), Dorsalis Pedis ( R) GI/Abdominal: Normal Bowel Sounds, Soft, Non-Tender Back Exam: Normal Inspection Extremities: Non-Tender, No Pedal Edema, Normal Capillary Refill, Other (left hip wound surgical: no redness, no heat, no drainage. healing well. Neurovascular intact, sensory/motor function intact. ). No: Redness Neurological: Alert Psychiatric: Normal Affect, Normal Mood Skin Exam: Warm, Dry, Intact, Normal Color, No Rash Course - Vital Signs Last Recorded V/S: Last Vital Signs Temp 97.6 F 07/09/19 12:55 Pulse 96 07/09/19 12:55 Resp 18 07/09/19 12:55 BP 119/54 L 07/09/19 12:55 Pulse Ox 100 07/09/19 12:55 - Orders/Labs/Meds Orders: Active Orders 24 hr Category Date Time Status BMP [BASIC METABOLIC PANEL,BMP] [CHEM] Stat Lab 07/09/19 13:21 Ordered CBC WITH AUTO DIFF [HEME] Stat Lab 07/09/19 13:21 Ordered - Re-Assessments/Exams Free Text/Narrative Re-Assessment/Exam: 07/09/19 13:34 Called and spoke with Dr. Ulrich at [facility] surgeon. He has accepted the patient. Will transfer. I reviewed radiology report from . Departure - Departure Time of Disposition: 13:25 Disposition: DC/Tfer to Acute Hospital 02 Condition: Fair Clinical Impression: Closed left hip fracture Qualifiers: Encounter type: initial encounter Qualified Code(s): S72.002A - Fracture of unspecified part of neck of left femur, initial encounter for closed fracture - Discharge Information *PRESCRIPTION DRUG MONITORING PROGRAM REVIEWED*: Not Applicable *COPY OF PRESCRIPTION DRUG MONITORING REPORT IN PATIENT DANILO: Not Applicable Forms: ED Department Discharge Additional Instructions: GO TO [facility] FOR ADMISSION DR. ULRICH ACCEPTING Sepsis Event Note - Evaluation Sepsis Screening Result: No Definite Risk - Focused Exam Vital Signs: Vital Signs Temp Pulse Resp BP Pulse Ox 07/09/19 12:55 97.6 F 96 18 119/54 L 100 Date Exam was Performed: 07/09/19 Time Exam was Performed: 13:35 - My Orders Last 24 Hours: My Active Orders 07/09/19 13:21 BMP [BASIC METABOLIC PANEL,BMP] [CHEM] Stat CBC WITH AUTO DIFF [HEME] Stat - Assessment/Plan Last 24 Hours: My Active Orders 07/09/19 13:21 BMP [BASIC METABOLIC PANEL,BMP] [CHEM] Stat CBC WITH AUTO DIFF [HEME] Stat Plan: PLEASE SEE RN NOTE FOR PFSH. Risk vs benefits explained to patient and family. risk of transfer , mvc, emboli. Risk of staying in [place] no surgical repair. Benefits of transfer higher level of care, surgeon. The benefits of staying in [place] close to home.
[2019-07-09 13:47] LABS: CHLORIDE,CL 104 mEq/L (98-106); SODIUM,NA 142 mEq/L (136-145)
== END 2019-07-09 14:00 ==
LOC: CC.ED 12:54
DX: S72.002A Fracture of unspecified part of neck of left femur, initial encounter for closed fracture (principal); I10 Essential (primary) hypertension; I25.2 Old myocardial infarction; Z88.0 Allergy status to penicillin; Z88.2 Allergy status to sulfonamides
CPT/HCPCS: 36415; 80048; 85025; 99284